=== PATIENT | female | born 1980 | race Caucasian/White ===

== ENCOUNTER 2016-08-22 11:20 | Inpatient (IN) ==
--- NOTE | 2016-08-22 11:35 | ED.PDOC ---
General ED Provider: Dr. PEARL ROE JR Chief Complaint: Nausea/Vomiting Stated Complaint: GENERAL WEAKNESS, VOMITING, NAUSEA. RIGHT LOWER TO MIDLINE ABD PAIN. [ End ]N V days 97.7 66 20 100% 149/93 10 Time Seen by Physician: 11:34 Mode of Arrival: Walk-In Information Source: Patient, Family Exam Limitations: No limitations [facility] and Triage Documentation Reviewed and Agree: No Review of Systems - Review Of Systems Constitutional: Reports: Malaise, Weakness Eyes: Reports: No symptoms Ears, Nose, Mouth, Throat: Reports: No symptoms Respiratory: Reports: No symptoms Cardiac: Reports: No symptoms GI: Reports: Abdominal pain (RLQ), Nausea (retching bile ), Vomiting : Reports: No symptoms Musculoskeletal: Reports: No symptoms Skin: Reports: No symptoms Neurological: Reports: No symptoms Endocrine: Reports: No symptoms Hematologic/Lymphatic: Reports: No symptoms All Other Systems: Other Past Medical History - Past Medical History Previously Healthy: Yes Endocrine: Reports: None Cardiovascular: Reports: None Respiratory: Reports: None Hematological: Reports: None Gastrointestinal: Reports: GERD Genitourinary: Reports: None Neuro/Psych: Reports: Anxiety, Depression, Other (OCD) Musculoskeletal: Reports: None Cancer: Reports: None Last Menstrual Period: 08/24 - Surgical History General Surgical History: Reports: Tubal ligation, Cholecystectomy - Family History Family History: Reports: Unknown - Social History Smoking Status: Former smoker Hx Substance Use: No Alcohol Screening: Occasionally - Immunizations Tetanus Shot up to Date: Yes Physical Exam - Physical Exam Appearance: Ill-appearing, Obese Ill-appearing: Moderate Pain Distress: Moderate Eyes: ELÍAS, EOMI, Conjunctiva clear ENT: Ears normal, Nose normal, Oropharynx normal Neck: Supple Respiratory: Airway patent, Breath sounds clear, Breath sounds equal, Respirations nonlabored Cardiovascular: RRR, Pulses normal, No rub, No murmur GI/: Soft, No masses, No Organomegaly, Tender, Bowel sounds hypoactive Musculoskeletal: Normal strength, ROM intact, No edema, No calf tenderness Skin: Warm, Dry, Normal color Neurological: Sensation intact, Motor intact, Reflexes intact, Cranial nerves intact, Alert, Oriented Psychiatric: Affect appropriate, Mood appropriate, Anxious Critical Care Note - Critical Care Note Total Time (mins): 0 Course - Course Hematology/Chemistry: 08/22/16 11:35 08/22/16 11:35 Orders, Labs, Meds: Lab Review 08/22/16 08/22/16 08/22/16 11:00 11:35 13:20 WBC 12.84 H RBC 4.61 Hgb 13.2 Hct 37.7 MCV 81.8 MCH 28.6 MCHC 35.0 RDW Coeff of Yesi 12.7 Plt Count 295 Immature Gran % (Auto) 0.5 Neut % (Auto) 84.6 Lymph % (Auto) 9.6 L [place] % (Auto) 4.9 Eos % (Auto) 0.0 Baso % (Auto) 0.4 Immature Gran # (Auto) 0.1 Neut # 10.9 H Lymph # 1.2 [place] # 0.6 Eos # 0.0 Baso # 0.1 Sodium 138 Potassium 3.7 Chloride 108 H Carbon Dioxide 18 L Anion Gap 15.7 BUN 11 Creatinine 0.98 Estimated GFR (MDRD) 65.00 BUN/Creatinine Ratio 11.22 Glucose 119 H Calcium 9.6 Total Bilirubin 0.45 AST 16 ALT 16 Alkaline Phosphatase 37 L Total Protein 7.7 Albumin 4.3 Globulin 3.4 Albumin/Globulin Ratio 1.26 Amylase 130 H Lipase 6 L Serum , Qual Negative Urine Color Yellow Urine Clarity Clear Urine pH 8.5 Ur Specific [place] 1.020 Urine Protein Trace Urine Glucose (UA) Negative Urine Ketones 4+ Urine Blood Trace-intact Urine Nitrite Negative Urine Bilirubin 1+ Urine Urobilinogen 1.0 Ur Leukocyte Esterase Negative Urine Microscopic RBC 2-5 Ur Squamous Epith Cells 5-10 Urine Bacteria 1+ H. pylori IgG Antibody Negative Orders Category Date Time Status ADMIT PATIENT INPATIENT .TO [facility] (NON-MONITORED ADMISSION 08/22/16 14: 44 Active BED) ACTIVITY .Early Mobilization for VTE Prevention CARE 08/22/16 14:44 Active INTAKE & OUTPUT Q8HR CARE 08/22/16 14:44 Active VITAL SIGNS Q4HR CARE 08/22/16 14:44 Active NOTHING BY MOUTH DIETARY 08/22/16 Dinner Ordered ED IV/MEDIPORT/POWERPORT .ONCE EMERGENCY 08/22/16 11:34 Active AMYLASE Stat LAB 08/22/16 11:35 Completed CBC W/ AUTO DIFF DAILY@0600 LAB 08/23/16 06:00 Ordered CBC W/ AUTO DIFF DAILY@0600 LAB 08/24/16 06:00 Ordered CBC W/ AUTO DIFF DAILY@0600 LAB 08/25/16 06:00 Ordered CBC W/ AUTO DIFF DAILY@0600 LAB 08/26/16 06:00 Ordered CBC W/ AUTO DIFF DAILY@0600 LAB 08/27/16 06:00 Ordered CBC W/ AUTO DIFF DAILY@0600 LAB 08/28/16 06:00 Ordered CBC W/ AUTO DIFF DAILY@0600 LAB 08/29/16 06:00 Ordered CBC W/ AUTO DIFF DAILY@0600 LAB 08/30/16 06:00 Ordered CBC W/ AUTO DIFF DAILY@0600 LAB 08/31/16 06:00 Ordered CBC W/ AUTO DIFF DAILY@0600 LAB 09/01/16 06:00 Ordered CBC W/ AUTO DIFF DAILY@0600 LAB 09/02/16 06:00 Ordered CBC W/ AUTO DIFF DAILY@0600 LAB 09/03/16 06:00 Ordered CBC W/ AUTO DIFF DAILY@0600 LAB 09/04/16 06:00 Ordered CBC W/ AUTO DIFF DAILY@0600 LAB 09/05/16 06:00 Ordered CBC W/ AUTO DIFF DAILY@0600 LAB 09/06/16 06:00 Ordered CBC W/ AUTO DIFF DAILY@0600 LAB 09/07/16 06:00 Ordered CBC W/ AUTO DIFF DAILY@0600 LAB 09/08/16 06:00 Ordered CBC W/ AUTO DIFF DAILY@0600 LAB 09/09/16 06:00 Ordered CBC W/ AUTO DIFF DAILY@0600 LAB 09/10/16 06:00 Ordered CBC W/ AUTO DIFF DAILY@0600 LAB 09/11/16 06:00 Ordered CBC W/ AUTO DIFF Stat LAB 08/22/16 11:35 Completed COMPREHENSIVE METABOLIC PANEL DAILY@0600 LAB 08/23/16 06:00 Ordered COMPREHENSIVE METABOLIC PANEL DAILY@0600 LAB 08/24/16 06:00 Ordered COMPREHENSIVE METABOLIC PANEL DAILY@0600 LAB 08/25/16 06:00 Ordered COMPREHENSIVE METABOLIC PANEL DAILY@0600 LAB 08/26/16 06:00 Ordered COMPREHENSIVE METABOLIC PANEL DAILY@0600 LAB 08/27/16 06:00 Ordered COMPREHENSIVE METABOLIC PANEL DAILY@0600 LAB 08/28/16 06:00 Ordered COMPREHENSIVE METABOLIC PANEL DAILY@0600 LAB 08/29/16 06:00 Ordered COMPREHENSIVE METABOLIC PANEL DAILY@0600 LAB 08/30/16 06:00 Ordered COMPREHENSIVE METABOLIC PANEL DAILY@0600 LAB 08/31/16 06:00 Ordered COMPREHENSIVE METABOLIC PANEL DAILY@0600 LAB 09/01/16 06:00 Ordered COMPREHENSIVE METABOLIC PANEL DAILY@0600 LAB 09/02/16 06:00 Ordered COMPREHENSIVE METABOLIC PANEL DAILY@0600 LAB 09/03/16 06:00 Ordered COMPREHENSIVE METABOLIC PANEL DAILY@0600 LAB 09/04/16 06:00 Ordered COMPREHENSIVE METABOLIC PANEL DAILY@0600 LAB 09/05/16 06:00 Ordered COMPREHENSIVE METABOLIC PANEL DAILY@0600 LAB 09/06/16 06:00 Ordered COMPREHENSIVE METABOLIC PANEL DAILY@0600 LAB 09/07/16 06:00 Ordered COMPREHENSIVE METABOLIC PANEL DAILY@0600 LAB 09/08/16 06:00 Ordered COMPREHENSIVE METABOLIC PANEL DAILY@0600 LAB 09/09/16 06:00 Ordered COMPREHENSIVE METABOLIC PANEL DAILY@0600 LAB 09/10/16 06:00 Ordered COMPREHENSIVE METABOLIC PANEL DAILY@0600 LAB 09/11/16 06:00 Ordered COMPREHENSIVE METABOLIC PANEL Stat LAB 08/22/16 11:35 Completed H. PYLORI SCREEN Stat LAB 08/22/16 11:35 Completed LIPASE Stat LAB 08/22/16 11:35 Completed SERUM TEST [SERUM ] Stat LAB 08/22/16 11:00 Completed URINALYSIS C & S IF INDICATED Stat LAB 08/22/16 13:20 Completed URINE CULTURE Stat LAB 08/22/16 13:20 Received 0.9 % Sodium Chloride [Saline Flush] MEDS 08/22/16 11:34 Active 1 syr IVF PRN PRN Morphine Sulfate [Morphine 4 mg/ml Syringe] MEDS 08/22/16 11:47 Discontinued 4 mg IVP ONCE STA Morphine Sulfate [Morphine 4 mg/ml Syringe] MEDS 08/22/16 14:49 Discontinued 4 mg IVP ONCE STA Morphine Sulfate [Morphine 4 mg/ml Syringe] MEDS 08/22/16 14:50 Active 4 mg IVP Q6H PRN Ondansetron HCl/Pf [Zofran 4 mg/2 ml] MEDS 08/22/16 11:47 Discontinued 4 mg IVP ONCE STA Ondansetron HCl/Pf [Zofran 4 mg/2 ml] MEDS 08/22/16 12:38 Discontinued 4 mg IVP ONCE STA Ondansetron HCl/Pf [Zofran 4 mg/2 ml] MEDS 08/22/16 14:44 Active 4 mg IVP Q4H PRN Promethazine HCl [Phenergan 25 mg/ml Vial] MEDS 08/22/16 13:29 Discontinued 25 mg .ROUTE .STK-MED ONE Promethazine HCl [Phenergan 25 mg/ml Vial] 25 mg MEDS 08/22/16 13:01 Discontinued 0.9 % Sodium Chloride [Sodium Chloride] 50 ml IV ONCE Sodium Chloride 0.9% [Sodium Chloride] 1,000 ml MEDS 08/22/16 15:00 Active IV 75 mls/hr Sodium Chloride 0.9% [Sodium Chloride] 1,000 ml MEDS 08/22/16 11:48 Discontinued IV BOLUS Sodium Chloride 0.9% [Sodium Chloride] 1,000 ml MEDS 08/22/16 13:01 Discontinued IV BOLUS RESUSCITATION STATUS Routine OTHERS 08/22/16 14:[address] ABDOMEN/PELVIS WO CONTRAST Stat RADS 08/22/16 11:34 Completed Medications Generic Name Dose Route Start Last Admin Trade Name Freq PRN Reason Stop Dose Admin Clonazepam 1 mg 08/22/16 21:00 Klonopin PO TID TERRY Fluoxetine HCl 40 mg 08/23/16 09:00 Prozac PO DAILY TERRY Gabapentin 200 mg 08/22/16 21:00 Neurontin PO TID TERRY Sodium Chloride 1,000 mls @ 75 mls/hr 08/22/16 15:00 08/22/16 16:56 Sodium Chloride IV 75 mls/hr .[id number] TERRY Administration Methocarbamol 500 mg 08/22/16 21:00 Robaxin PO BEDTIME TERRY Morphine Sulfate 4 mg 08/22/16 14:50 Morphine 4 Mg/Ml Syringe IVP Q6H PRN Abdominal Pain Morphine Sulfate 4 mg 08/22/16 18:52 Morphine 4 Mg/Ml Syringe IVP 08/22/16 18:53 ONCE STA Ondansetron HCl 4 mg 08/22/16 14:44 08/22/16 14:55 Zofran 4 Mg/2 Ml IVP 4 mg Q4H PRN Administration Nausea / Vomiting Ondansetron HCl 4 mg 08/22/16 17:54 08/22/16 17:58 Zofran 4 Mg/2 Ml IVP 08/22/16 17:55 4 mg ONCE STA Administration Sodium Chloride 1 syr 08/22/16 11:34 08/22/16 14:59 Saline Flush IVF 1 syr PRN PRN Administration To flush IV Topiramate 50 mg 08/22/16 21:00 Topamax PO BID TERRY Discontinued Medications Generic Name Dose Route Start Last Admin Trade Name Freq PRN Reason Stop Dose Admin Sodium Chloride 1,000 mls @ 1,000 mls/hr 08/22/16 11:48 08/22/16 11:57 Sodium Chloride IV 08/22/16 12:47 1,000 mls/hr BOLUS STA Administration Promethazine HCl 25 mg/ Sodium 51 mls @ 75 mls/hr 08/22/16 13:01 08/22/16 13: 33 Chloride IV 08/22/16 13:41 75 mls/hr ONCE STA Administration Sodium Chloride 1,000 mls @ 1,000 mls/hr 08/22/16 13:01 08/22/16 13:32 Sodium Chloride IV 08/22/16 14:00 1,000 mls/hr BOLUS STA Administration Morphine Sulfate 4 mg 08/22/16 11:47 08/22/16 11:58 Morphine 4 Mg/Ml Syringe IVP 08/22/16 11:48 4 mg ONCE STA Administration Morphine Sulfate 4 mg 08/22/16 14:49 08/22/16 14:57 Morphine 4 Mg/Ml Syringe IVP 08/22/16 14:50 4 mg ONCE STA Administration Ondansetron HCl 4 mg 08/22/16 11:47 08/22/16 11:57 Zofran 4 Mg/2 Ml IVP 08/22/16 11:48 4 mg ONCE STA Administration Ondansetron HCl 4 mg 08/22/16 12:38 08/22/16 12:43 Zofran 4 Mg/2 Ml IVP 08/22/16 12:39 4 mg ONCE STA Administration Vital Signs: Temp Pulse Resp BP Pulse Ox 08/22/16 11:21 97.7 F 66 20 149/93 H 100 Departure - Departure Time of Disposition: 14:40 Disposition: ADMITTED INPATIENT Discharge Problem: Nausea, Vomiting Condition: Fair Pt referred to PMD for follow-up: No (hospitalist) Allergies/Adverse Reactions: Allergies No Known Allergies Allergy (Unverified 08/19/13 17:15) Home Medications: Ambulatory Orders Clonazepam [Klonopin] 1 mg PO TID 07/12/13 Fluoxetine HCl [Prozac] 40 mg PO DAILY 07/12/13 Hydrocodone Bit/Acetaminophen [[place] 7.5-325] 1 tab PO TID PRN 07/12/13 Methocarbamol 500 mg PO BEDTIME 07/12/13 Topiramate [Topamax] 50 mg PO BID 08/19/13 Gabapentin [Neurontin] 200 mg PO TID 08/22/16
[2016-08-22 11:43] LABS: BASOPHILS # (AUTO) 0.1 K/uL (0-0.2); BASOPHILS % (AUTO) 0.4 % (0.0-3.0); HEMATOCRIT 37.7 % (37.0-47.0); HEMOGLOBIN 13.2 g/dl (12.0-16.0); IMMATURE GRANULOCYTE % (AUTO) 0.5 % (0.0-5.0); LYMPHOCYTES # (AUTO) 1.2 K/uL (0.60-3.4); LYMPHOCYTES % (AUTO) 9.6 (10.0-50.0); MEAN CORPUSCULAR HEMOGLOBIN 28.6 pg (27.0-31.0); MEAN CORPUSCULAR VOLUME 81.8 fl (81.0-99.0); MONOCYTES # (AUTO) 0.6 K/uL (0.4-2.0); MONOCYTES % (AUTO) 4.9 (0-10); NEUTROPHILS # (AUTO) 10.9 K/ul (2.0-6.9); NEUTROPHILS % (AUTO) 84.6; PLATELET COUNT 295 10^3/uL (140-440); RED BLOOD COUNT 4.61 10^6/ul (4.20-5.40); WHITE BLOOD COUNT 12.84 K/ul (4.6-10.2)
[2016-08-22] MEDS ORDERED: ZOFRAN 4 MG/2 ML IVP STA ×3 (11:47→17:54)
[2016-08-22] MEDS ORDERED: MORPHINE 4 MG/ML SYRINGE IVP STA ×3 (11:47→18:52)
[2016-08-22] MEDS ORDERED: SODIUM CHLORIDE 1,000 ML IV STA ×2 (11:48→13:01)
[2016-08-22 12:04] LABS: H. PYLORI ANTIBODY NEGATIVE (NEGATIVE); H.PYLORI INTERNAL QC INTERNAL QC VALID
[2016-08-22 12:08] LABS: ALBUMIN 4.3 g/dL (3.4-5.0); ALBUMIN/GLOBULIN RATIO 1.26; ANION GAP 15.7; BILIRUBIN,TOTAL 0.45 mg/dL (0.00-1.20); BUN/CREATININE RATIO 11.22; CALCIUM 9.6 mg/dL (8.2-10.2); CREATININE 0.98 mg/dL (0.60-1.30); POTASSIUM 3.7 mmol/L (3.5-5.10); TOTAL PROTEIN 7.7 g/dL (6.4-8.2)
[2016-08-22 12:14] LABS: SERUM PREGNANCY INTERNAL QC INTERNAL QC VALID
--- NOTE | 2016-08-22 12:51 | CT ---
EXAM: CT Abdomen without contrast. CT Pelvis without contrast. HISTORY: Right-sided abdominal pain. Nausea, vomiting, diarrhea for 2 days. COMPARISON: 05/12/2010. TECHNIQUE: Multiple axial images of the abdomen and pelvis were obtained without intravenous contra st. Images were reformatted in the coronal plane. FINDINGS: Please note that evaluation of the abdominal and pelvic structures is limited due to lack of intravenous contrast. No acute abnormality identified in the lung bases. Right lower lobe nodule is suggested on axial im age 1, likely post infectious or inflammatory. Degenerative changes are present in the spine. The gallbladder is absent. The liver, pancreas, spleen, adrenal glands, and kidneys demonstrate nor mal contour. No calcified renal stones or hydronephrosis detected. The bowel is normal in course and caliber without evidence for obstruction or inflammatory process. The appendix is normal. Uterus demonstrates normal contour. Small amount of free pelvic fluid is within physiologic range. Urinary bladder is unremarkable. No free air identified. Small fat-cont aining umbilical hernia noted. IMPRESSION: No acute abnormality within the abdomen or pelvis.
[2016-08-22] MEDS ORDERED: PHENERGAN 25 MG/ML VIAL 25 MG in SODIUM CHLORIDE 50 ML IV STA (13:01)
[2016-08-22 13:29] LABS: BILIRUBIN,URINE 1+ (NEGATIVE); KETONES,URINE 4+ (NEGATIVE); LEUKOCYTE ESTERASE ,URINE Negative (NEGATIVE); NITRITE,URINE Negative (NEGATIVE); PH,URINE 8.5 (5-9); PROTEIN,URINE Trace (NEGATIVE); URINE, BLOOD Trace-intact (NEGATIVE)
[2016-08-22] MEDS ORDERED: PHENERGAN 25 MG/ML VIAL ONE (13:29)
[2016-08-22 13:38] LABS: ADD URINE MICROSCOPIC YES
[2016-08-22 13:39] LABS: BACTERIA,URINE 1+ (NOT PRESENT)
[2016-08-22] MEDS ORDERED: ZOFRAN 4 MG/2 ML IVP PRN (14:44)
[2016-08-22] MEDS ORDERED: MORPHINE 4 MG/ML SYRINGE IVP PRN (14:50)
[2016-08-22] MEDS ORDERED: REGLAN IVP PRN (14:55)
[2016-08-22] MEDS ORDERED: SODIUM CHLORIDE 1,000 ML IV SCH (15:00)
[2016-08-22 16:27] VITALS: BMI 36.8
[2016-08-22 19:43] LABS: COCAIN SCREEN,URINE NEGATIVE (NEGATIVE)
[2016-08-22] MEDS ORDERED: NEURONTIN ONE (20:18)
[2016-08-22] MEDS ORDERED: NEURONTIN PO SCH ×2 (21:00)
[2016-08-22] MEDS ORDERED: ROBAXIN PO SCH (21:00)
[2016-08-22] MEDS ORDERED: KLONOPIN PO SCH (21:00)
[2016-08-22] MEDS ORDERED: METHOCARBAMOL 500 MG PO SCH ×21 (21:00)
[2016-08-22] MEDS ORDERED: TOPAMAX PO SCH (21:00)
[2016-08-22] MEDS ORDERED: NON-FORMULARY MEDICATION (Clonazepam [Klonopin] 1 MG) PO SCH ×22 (21:00)
[2016-08-22 21:04] VITALS: BP 126/75; TEMP 99.7
[2016-08-23] MEDS ORDERED: PROZAC PO SCH (09:00)
[2016-08-23] MEDS ORDERED: NON-FORMULARY MEDICATION (Fluoxetine Hcl [Prozac] 40 MG) PO SCH (09:00)
--- NOTE | 2016-08-23 13:20 | DS ---
DATE OF SERVICE: 08/22/16 HOSPITAL COURSE: I had contacted [facility] and the nurses had sent the demographics as well as pertinent data. They had not call us back and we did call them again and the transfer center mentioned that they had paged the hospitalist twice and had not answered. Transfer Center told the nurse the [place] that send a fax to him. We had not heard anything from them so I called the Transfer Center and I did talk to them and discussed the case. They told me that they had to talk to the surgeon about what I had told them and they will call me back. The Transfer Center did call me back and told me that Dr. Mustafa was online. I did inform Dr. Mustafa about the history of this patient as well as the pertinent physical and pertinent data. This patient has low grade fever of 100 this evening. Continued nausea and vomiting. WBC was 12,000+ and the abdomen has tenderness in the right lower quadrant with rebound. The tenderness is not significant when the muscle is contracted. Bowel sounds were active, the pelvic examination was negative and rectal was also negative. Dr. Mustafa accepted the patient into his services and this patient will be transferred to [facility] to the emergency room. The patient was advised about the transfer to [facility] as soon as possible. I had told them at my first examined that I would seek transfer for her to another facility where there is a surgeon. I also had informed the mother with regards to the transfer. I told her that if I could transfer her to [place] I would first try [facility] and then [facility] and if both of them would not accept the patient that I try another facility. The patient as well as the mother preferred to the go to [facility]. This patient will sent to [facility] and I did write a history as well as a physical examination of this patient to go with the patient to go to [facility]. I had dictated the history of physicals but no one able to transcribe at this time. FINAL DIAGNOSES: 1. Abdominal pain, right lower quadrant, probably acute appendicitis. MTDD
--- NOTE | 2016-08-23 14:18 | HP ---
DATE OF SERVICE: 08/22/16 CHIEF COMPLAINT: Abdominal pain and vomiting SOURCE OF HISTORY: The patient HISTORY OF PRESENT ILLNESS: The patient did go to [place] and eat hamburger and [employer] . The patient claimed to have full regurgitation Monday and she always had reflux problems. She had nausea and took Zofran Monday as well as Monday. She ran out of Zofran by Monday evening. She was able to keep food down with Zofran buy by Monday the patient claimed to have problems with nausea and vomiting. She presented to the emergency room and was seen by the emergency room physician at 11:34am. The patient's work up at the emergency room consisted of CBC showing WBC of 12,840 normal electrolytes, renal panel normal, liver normal, Amylase slightly elevated probably not significant 130 upper normal 115 and Lipase very low at 6. Serum test negative. This patient had previous tubal ligation. CAT scan of the abdomen showed no remarkable abnormalities including a normal looking appendix. CAT of the abdomen was done 11:34am. PAST PERSONAL HISTORY: The patient has Cholecystectomy laparoscopic done at [place], the procedure took longer than what was excepted 4.5 hour instead of 45 minutes. It must have been a common duct stone causing the prolongation of the surgery. She also had previous tubal ligation. The patient was admitted at [facility] when she was a child. GERD Depression Anxiety OCD FAMILY HISTORY: Mother had autoimmune disorder as cell as sickle cell trait SOCIAL HISTORY: The patient is and stopped smoking some years ago. Occasional alcohol drink. MEDICATIONS: Hydrocodone/Tylenol 7.5-325 one tablet three times a day as needed Prozac 40mg PO daily Klonopin 1mg three times a day Methocarbamol 500mg tablet at bedtime Topamax 50mg twice a day Gabapentin 200mg three times a day ALLERGIES: No known drug allergies. REVIEW OF SYSTEMS: CONSTITUTIONAL: The patient is alert with no chills, questionable fever with weakness because of the vomiting and abdominal pain YOUTH SERVICES SPECIALIST: No headaches, no dizziness, ataxia and history of seizures disorder or syncope VISUAL: Denies any blurred vision, double vision or transient loss of vision AUDITORY: Hearing is adequate, denies any tinnitus, pain or drainage. RESPIRATORY: The patient has no cough and no history of hemoptysis CARDIOVASCULAR:Denies any chest tightness of chest oppression. GASTROINTESTINAL: The patient has regurgitation since Monday but had nausea and vomiting more pronounced today with abdominal pain. GENITOURINARY: Denies or pain, frequency or urgency or urination. MUSCULOSKELETAL: No significant joint pains or muscular pains ENDOCRINE: Negative; BMI is elevated at 36.9. INTEGUMENT: No rash or pleuritis HEMATOLOGIC: No history of prolonged bleeding or easy bruising. PSYCHIATRIC: Affect is normal in spite of the pain. PHYSICAL EXAMINATION: GENERAL: The patient is a 35 year old female , admitted to the hospital because of persistent vomiting with abdominal pain. The pain is located slightly below the level of the umbilicus in the right lower quadrant. The patient is not spasmatic. VITAL SIGNS: On the floor; Temperature 98.5, pulse 58, blood pressure 154/73, respiratory rate 16 and oxygen saturation 100 at room air. She is 5'11, 264 pounds and 4 ounces. HEAD: Unremarkable FACE: Symmetrical and equal with no facial weakness and no remarkable tenderness in the frontal maxillary sinus areas to palpation under pressure. EYES: Pupils equal/reactive to light. About 3mm in size. Conjunctivae not pale. Sclerae not icteric. MOUTH: Edentulous THROAT: No inflammation, tumors or exudate. NECK: No masses. No bruit. No tenderness. No rigidity. CHEST: Symmetrical and equal with good expansion. LUNGS: Clear to auscultation in both sides. HEART: Audible and regular with good tones. No murmurs. ABDOMEN: Scar from the previous laparoscopic cholecystectomy. Tenderness more on the right lower quadrant with rebound. Some tenderness in the upper quadrant but most likely from the vomiting. The tenderness is less with the muscle contraction. PELVIC EXAMINATION: Movement of the cervix does not increase the pain in the right lower quadrant. There is no adnexal masses. It is difficult to palpate because of the size. RECTAL: Anal sphincter slightly weak. Anal canal is free of tumor masses and there are no spiral rectal palpable bulging. LOWER EXTREMITIES: Essentially symmetrical and equal with no significant edema. The posterior tibials are difficult to find. UPPER EXTREMITIES: Symmetrical and equal LABS: CBC showing WBC of 12,840. CT scan of the abdomen with no acute processes including the appendix had the scan done at 11:34am. Serum amylase slightly elevated 130 probably not significant and lipase is normal. Urinalysis 4+ ketones from the vomiting. Chemistries are unremarkable and normal. ASSESSMENT: 1. Right lower quadrant pain, probably appendicitis 2. Markedly elevated BMI 3. History of gastroesophageal reflux disease 4. History of cholecystectomy done at [place], [place]. 5. History of Tubal ligation PLAN: 1. The patient during the examination was advised including her mother that I would seek transfer to another facility since there is no surgeon in his hospital for consultation. I would try [place] and if I could not get [place] then I would try other places to transfer her. We have called Transfer Center at [facility] and I am waiting for their call. The patient now has a low grade temperature; 100, pulse of 92, blood pressure 148/74 and respiratory between 16 to 20 and oxygen saturation is still at 100. Note will be dictated as to where she will going from this facility to the receiving facility. YOCASTA
== END 2016-08-22 21:15 | disposition short-term general hospital (02) | DRG 392 ==
LOC: ED 11:20 → MEDSURG B 15:02
PROVIDERS: ADMIT General Practice; ATTEND General Practice
DX: R10.31 Right lower quadrant pain (principal); K35.80 Unspecified acute appendicitis; R10.813 Right lower quadrant abdominal tenderness; R11.2 Nausea with vomiting, unspecified; R53.1 Weakness; R50.9 Fever, unspecified; Z90.49 Acquired absence of other specified parts of digestive tract; Z87.891 Personal history of nicotine dependence; Z79.899 Other long term (current) drug therapy
CPT/HCPCS: 36415; 80053; 80306; 81001; 82150; 83690; 84703; 85025; 86677; 87086; 96361; 96365; 96375; 96376; 99224; 99284

== ENCOUNTER 2016-08-22 21:21 | Outpatient (CLI) ==
[2016-08-22 16:27] VITALS: BMI 36.8
== END 2016-08-22 21:22 ==
LOC: AMBL 21:21
PROVIDERS: ATTEND Family Medicine
DX: R10.9 Unspecified abdominal pain (principal)

== ENCOUNTER 2016-10-04 09:56 | Outpatient (CLI) ==
--- NOTE | 2016-10-04 10:25 | DI ---
EXAM: Views of the lumbar spine HISTORY: Stenosis, disc degeneration. TECHNIQUE: AP lateral, oblique and coned-down lateral views of the lumbar spine were obtained. FINDINGS: The alignment is normal. There is no evidence of compression fracture. There is no pars defect. There is mild degenerative disc disease and loss of disc height seen at L5-S1. There has b een previous cholecystectomy. IMPRESSION: Mild degenerative disc disease seen at L5-S1. There is no spondylolisthesis. No evidence of acute compression fracture.
== END 2016-10-04 09:57 | disposition home or self-care (01) ==
LOC: RAD 09:56
PROVIDERS: ATTEND Pain Medicine Interventional Pain Medicine
DX: M51.16 Intervertebral disc disorders with radiculopathy, lumbar region (principal); M51.17 Intervertebral disc disorders with radiculopathy, lumbosacral region; M48.06 Spinal stenosis, lumbar region; M48.07 Spinal stenosis, lumbosacral region; M51.36 Other intervertebral disc degeneration, lumbar region; M51.37 Other intervertebral disc degeneration, lumbosacral region; M47.816 Spondylosis without myelopathy or radiculopathy, lumbar region; M47.817 Spondylosis without myelopathy or radiculopathy, lumbosacral region

== ENCOUNTER 2016-11-30 05:19 | Inpatient (IN) ==
[2016-11-30] MEDS ORDERED: PHENERGAN 25 MG/ML VIAL 25 MG in SODIUM CHLORIDE 50 ML IV STA (05:30)
[2016-11-30] MEDS ORDERED: MORPHINE 2 MG/ML SYRINGE IVP STA (05:30)
[2016-11-30] MEDS ORDERED: SODIUM CHLORIDE 1,000 ML IV STA ×2 (05:30)
[2016-11-30] MEDS ORDERED: PHENERGAN 25 MG/ML VIAL ONE (05:34)
[2016-11-30 05:39] LABS: BASOPHILS # (AUTO) 0.1 K/uL (0-0.2); BASOPHILS % (AUTO) 0.9 % (0.0-3.0); EOSINOPHILS # (AUTO) 0.4 K/ul (0.0-0.7); EOSINOPHILS % (AUTO) 3.7 % (0.0-7.0); HEMATOCRIT 38.7 % (37.0-47.0); HEMOGLOBIN 13.6 g/dl (12.0-16.0); IMMATURE GRANULOCYTE % (AUTO) 0.3 % (0.0-5.0); LYMPHOCYTES # (AUTO) 2.6 K/uL (0.60-3.4); LYMPHOCYTES % (AUTO) 25.7 (10.0-50.0); MEAN CORPUSCULAR HEMOGLOBIN 29.1 pg (27.0-31.0); MEAN CORPUSCULAR HGB CONC 35.1 (31.8-35.4); MEAN CORPUSCULAR VOLUME 82.9 fl (81.0-99.0); MONOCYTES # (AUTO) 0.6 K/uL (0.4-2.0); MONOCYTES % (AUTO) 5.9 (0-10); NEUTROPHILS # (AUTO) 6.4 K/ul (2.0-6.9); NEUTROPHILS % (AUTO) 63.5; PLATELET COUNT 308 10^3/uL (140-440); RED BLOOD COUNT 4.67 10^6/ul (4.20-5.40); WHITE BLOOD COUNT 10.11 K/ul (4.6-10.2)
[2016-11-30 06:01] LABS: ALBUMIN 4.1 g/dL (3.4-5.0); ALBUMIN/GLOBULIN RATIO 1.32; ANION GAP 17.7; BILIRUBIN,TOTAL 0.46 mg/dL (0.00-1.20); BUN/CREATININE RATIO 17.2; CALCIUM 9.7 mg/dL (8.2-10.2); CREATININE 0.93 mg/dL (0.60-1.30); POTASSIUM 3.7 mmol/L (3.5-5.10); TOTAL PROTEIN 7.2 g/dL (6.4-8.2)
--- NOTE | 2016-11-30 06:27 | ED.PDOC ---
General ED Provider: Dr. CHARLENE HYMAN-ER Chief Complaint: Nausea/Vomiting Stated Complaint: lito been throwing up and having diarrhea for the past 3 hrs Time Seen by Physician: 05:20 Mode of Arrival: Walk-In Information Source: Patient Exam Limitations: No limitations [facility] and Triage Documentation Reviewed and Agree: Yes GI Complaint Exam - Vomiting/Diarrhea Complaint/Exam Onset/Duration: 3 hrs ago Symptoms Are: Still present Episodes of Vomiting over last 24 Hours: 10 Episodes of Diarrhea Over Last 24 Hours: 3 Initial Severity: Mild Current Severity: Moderate Character of Vomiting: Reports: Non-bilious Character of Diarrhea: Reports: Watery Aggravating: Reports: None Alleviating: Reports: None Associated Signs and Symptoms: Reports: Abdominal pain, Cramping. Denies: Dizziness, Light-headedness, Melena, Hematemesis, Fever Kussmaul Respirations Present: No Differential Diagnoses: Bowel Obstruction, Dehydration, Viral Gastroenteritis, Pancreatitis, UTI Review of Systems - Review Of Systems Constitutional: Reports: No symptoms Eyes: Reports: No symptoms Ears, Nose, Mouth, Throat: Reports: No symptoms Respiratory: Reports: No symptoms Cardiac: Reports: No symptoms GI: Reports: Diarrhea, Nausea, Vomiting : Reports: No symptoms Musculoskeletal: Reports: No symptoms Skin: Reports: No symptoms Neurological: Reports: No symptoms Endocrine: Reports: No symptoms Hematologic/Lymphatic: Reports: No symptoms All Other Systems: Reviewed and Negative Past Medical History - Past Medical History Previously Healthy: Yes Endocrine: Reports: None Cardiovascular: Reports: None Respiratory: Reports: None Hematological: Reports: None Gastrointestinal: Reports: GERD Genitourinary: Reports: None Neuro/Psych: Reports: Anxiety, Depression, Other (OCD) Musculoskeletal: Reports: None Cancer: Reports: None Last Menstrual Period: PRESENTLY - Surgical History General Surgical History: Reports: Tubal ligation, Cholecystectomy - Family History Family History: Reports: Unknown - Social History Smoking Status: Former smoker Hx Substance Use: No Alcohol Screening: None Lives: With family - Immunizations Tetanus Shot up to Date: Yes Physical Exam - Physical Exam Appearance: Well-appearing, No pain distress, Well-nourished Pain Distress: Mild Eyes: ELÍAS, EOMI, Conjunctiva clear ENT: Ears normal, Nose normal, Oropharynx normal Neck: Supple Respiratory: Airway patent Cardiovascular: RRR, Pulses normal, No rub, No murmur GI/: Soft, Nontender, No masses, Bowel sounds normal, No Organomegaly Musculoskeletal: Normal strength Skin: Warm, Dry, Normal color Neurological: Sensation intact, Motor intact, Reflexes intact, Cranial nerves intact, Alert, Oriented Psychiatric: Affect appropriate, Mood appropriate, Anxious Interpretation - Radiology Interpretation Radiology Interpretation By: Radiologist Radiology Results: Negative Exam Interpreted: CT Scan Physician Notification - Case Discussed Physician Notified: dr brasher Time of Notification: 07:00 Critical Care Note - Critical Care Note Total Time (mins): 0 Course - Course Hematology/Chemistry: 11/30/16 05:30 11/30/16 05:30 Orders, Labs, Meds: Lab Review 11/30/16 11/30/16 05:30 07:05 WBC 10.11 RBC 4.67 Hgb 13.6 Hct 38.7 MCV 82.9 MCH 29.1 MCHC 35.1 RDW Coeff of Yesi 12.9 Plt Count 308 Immature Gran % (Auto) 0.3 Neut % (Auto) 63.5 Lymph % (Auto) 25.7 [place] % (Auto) 5.9 Eos % (Auto) 3.7 Baso % (Auto) 0.9 Immature Gran # (Auto) 0.0 Neut # 6.4 Lymph # 2.6 [place] # 0.6 Eos # 0.4 Baso # 0.1 Sodium 140 Potassium 3.7 Chloride 105 Carbon Dioxide 21 Anion Gap 17.7 BUN 16 Creatinine 0.93 Estimated GFR (MDRD) 69.00 BUN/Creatinine Ratio 17.20 Glucose 143 H Calcium 9.7 Total Bilirubin 0.46 AST 15 ALT 11 L Alkaline Phosphatase 40 L Total Protein 7.2 Albumin 4.1 Globulin 3.1 Albumin/Globulin Ratio 1.32 Amylase 192 H Lipase 22 Urine Color Yellow Urine Clarity Clear Urine pH >=9.0 Ur Specific Neligh 1.015 Urine Protein 1+ Urine Glucose (UA) Negative Urine Ketones 1+ Urine Blood 2+ Urine Nitrite Negative Urine Bilirubin Negative Urine Urobilinogen 0.2 Ur Leukocyte Esterase Negative Urine Microscopic RBC 5-10 Urine Microscopic WBC 5-10 Ur Squamous Epith Cells 5-10 Amorphous Sediment Trace Urine Bacteria 1+ Urine Mucus 1+ Orders Category Date Time Status ADMIT PATIENT INPATIENT .TO [facility] (NON-MONITORED ADMISSION 11/30/16 08: 07 Active BED) ACTIVITY .BR with [facility] CARE 11/30/16 08:07 Active BLOOD GLUCOSE MONITORING ACCUCHECK Q6H CARE 11/30/16 08:07 Active VITAL SIGNS Q8HR CARE 11/30/16 08:07 Active ED IV/MEDIPORT/POWERPORT .ONCE EMERGENCY 11/30/16 05:30 Active AMYLASE Stat LAB 11/30/16 05:30 Completed CBC W/ AUTO DIFF DAILY@0600 LAB 12/01/16 06:00 Ordered CBC W/ AUTO DIFF DAILY@0600 LAB 12/02/16 06:00 Ordered CBC W/ AUTO DIFF DAILY@0600 LAB 12/03/16 06:00 Ordered CBC W/ AUTO DIFF DAILY@0600 LAB 12/04/16 06:00 Ordered CBC W/ AUTO DIFF DAILY@0600 LAB 12/05/16 06:00 Ordered CBC W/ AUTO DIFF DAILY@0600 LAB 12/06/16 06:00 Ordered CBC W/ AUTO DIFF DAILY@0600 LAB 12/07/16 06:00 Ordered CBC W/ AUTO DIFF DAILY@0600 LAB 12/08/16 06:00 Ordered CBC W/ AUTO DIFF DAILY@0600 LAB 12/09/16 06:00 Ordered CBC W/ AUTO DIFF DAILY@0600 LAB 12/10/16 06:00 Ordered CBC W/ AUTO DIFF DAILY@0600 LAB 12/11/16 06:00 Ordered CBC W/ AUTO DIFF DAILY@0600 LAB 12/12/16 06:00 Ordered CBC W/ AUTO DIFF DAILY@0600 LAB 12/13/16 06:00 Ordered CBC W/ AUTO DIFF DAILY@0600 LAB 12/14/16 06:00 Ordered CBC W/ AUTO DIFF DAILY@0600 LAB 12/15/16 06:00 Ordered CBC W/ AUTO DIFF DAILY@0600 LAB 12/16/16 06:00 Ordered CBC W/ AUTO DIFF DAILY@0600 LAB 12/17/16 06:00 Ordered CBC W/ AUTO DIFF DAILY@0600 LAB 12/18/16 06:00 Ordered CBC W/ AUTO DIFF DAILY@0600 LAB 12/19/16 06:00 Ordered CBC W/ AUTO DIFF DAILY@0600 LAB 12/20/16 06:00 Ordered CBC W/ AUTO DIFF Stat LAB 11/30/16 05:30 Completed COMPREHENSIVE METABOLIC PANEL DAILY@0600 LAB 12/01/16 06:00 Ordered COMPREHENSIVE METABOLIC PANEL DAILY@0600 LAB 12/02/16 06:00 Ordered COMPREHENSIVE METABOLIC PANEL DAILY@0600 LAB 12/03/16 06:00 Ordered COMPREHENSIVE METABOLIC PANEL DAILY@0600 LAB 12/04/16 06:00 Ordered COMPREHENSIVE METABOLIC PANEL DAILY@0600 LAB 12/05/16 06:00 Ordered COMPREHENSIVE METABOLIC PANEL DAILY@0600 LAB 12/06/16 06:00 Ordered COMPREHENSIVE METABOLIC PANEL DAILY@0600 LAB 12/07/16 06:00 Ordered COMPREHENSIVE METABOLIC PANEL DAILY@0600 LAB 12/08/16 06:00 Ordered COMPREHENSIVE METABOLIC PANEL DAILY@0600 LAB 12/09/16 06:00 Ordered COMPREHENSIVE METABOLIC PANEL DAILY@0600 LAB 12/10/16 06:00 Ordered COMPREHENSIVE METABOLIC PANEL DAILY@0600 LAB 12/11/16 06:00 Ordered COMPREHENSIVE METABOLIC PANEL DAILY@0600 LAB 12/12/16 06:00 Ordered COMPREHENSIVE METABOLIC PANEL DAILY@0600 LAB 12/13/16 06:00 Ordered COMPREHENSIVE METABOLIC PANEL DAILY@0600 LAB 12/14/16 06:00 Ordered COMPREHENSIVE METABOLIC PANEL DAILY@0600 LAB 12/15/16 06:00 Ordered COMPREHENSIVE METABOLIC PANEL DAILY@0600 LAB 12/16/16 06:00 Ordered COMPREHENSIVE METABOLIC PANEL DAILY@0600 LAB 12/17/16 06:00 Ordered COMPREHENSIVE METABOLIC PANEL DAILY@0600 LAB 12/18/16 06:00 Ordered COMPREHENSIVE METABOLIC PANEL DAILY@0600 LAB 12/19/16 06:00 Ordered COMPREHENSIVE METABOLIC PANEL DAILY@0600 LAB 12/20/16 06:00 Ordered COMPREHENSIVE METABOLIC PANEL Stat LAB 11/30/16 05:30 Completed LIPASE Stat LAB 11/30/16 05:30 Completed URINALYSIS C & S IF INDICATED Stat LAB 11/30/16 07:05 Completed URINE CULTURE Stat LAB 11/30/16 08:00 Received 0.9 % Sodium Chloride [Saline Flush] MEDS 11/30/16 05:30 Active 1 syr IVF PRN PRN Ceftriaxone Sodium [Rocephin] 1 gm MEDS 11/30/16 09:00 Active 0.9 % Sodium Chloride [Sodium Chloride] 50 ml IV DAILY Hydromorphone HCl [Dilaudid 1 mg/ml Syringe] MEDS 11/30/16 08:13 Discontinued 0.5 mg IVP ONCE STA Morphine Sulfate [Morphine 2 mg/ml Syringe] MEDS 11/30/16 05:30 Discontinued 2 mg IVP ONCE STA Ondansetron HCl/Pf [Zofran 4 mg/2 ml] MEDS 11/30/16 06:49 Discontinued 4 mg .ROUTE .STK-MED ONE Ondansetron HCl/Pf [Zofran 4 mg/2 ml] MEDS 11/30/16 06:47 Discontinued 4 mg IVP ONCE STA Ondansetron HCl/Pf [Zofran 4 mg/2 ml] MEDS 11/30/16 08:14 Discontinued 4 mg IVP ONCE STA Ondansetron HCl/Pf [Zofran 4 mg/2 ml] MEDS 11/30/16 08:30 Discontinued 4 mg IVP Q6H Pantoprazole Sodium [Protonix IV] MEDS 11/30/16 08:10 Discontinued 40 mg IVP ONCE STA Promethazine HCl [Phenergan 25 mg/ml Vial] MEDS 11/30/16 05:34 Discontinued 25 mg .ROUTE .STK-MED ONE Promethazine HCl [Phenergan 25 mg/ml Vial] 25 mg MEDS 11/30/16 05:30 Discontinued 0.9 % Sodium Chloride [Sodium Chloride] 50 ml IV ONCE Sodium Chloride 0.9% [Sodium Chloride] 1,000 ml MEDS 11/30/16 08:30 Active IV 250 mls/hr Sodium Chloride 0.9% [Sodium Chloride] 1,000 ml MEDS 11/30/16 05:30 Discontinued IV BOLUS Sodium Chloride 0.9% [Sodium Chloride] 1,000 ml MEDS 11/30/16 05:[address] ABDOMEN/PELVIS WO CONTRAST Stat RADS 11/30/16 05:30 Completed U/S PELVIS JHA VAGINAL/NON OB Stat RADS 11/30/16 08:13 Completed Medications Generic Name Dose Route Start Last Admin Trade Name Freq PRN Reason Stop Dose Admin Al Hydroxide/Mg Hydroxide 30 ml 11/30/16 11:11 11/30/16 14:59 Gi Cocktail PO 30 ml QID PRN Administration Nausea / Vomiting Ceftriaxone Sodium 1 gm/ 50 mls @ 75 mls/hr 11/30/16 09:00 11/30/16 10:38 Sodium Chloride IV 75 mls/hr DAILY TERRY Administration Sodium Chloride 1,000 mls @ 250 mls/hr 11/30/16 08:30 11/30/16 14:00 Sodium Chloride IV 250 mls/hr .Q4H TERRY Administration Lorazepam 1 mg 11/30/16 11:11 11/30/16 11:27 Ativan IVP 1 mg Q6H PRN Administration Anxiety Ondansetron HCl 4 mg 11/30/16 12:00 11/30/16 11:27 Zofran 4 Mg/2 Ml IVP 4 mg Q6HR TERRY Administration Pantoprazole Sodium 40 mg 11/30/16 21:00 Protonix Iv IVP Q12HR TERRY Sodium Chloride 1 syr 11/30/16 05:30 11/30/16 05:50 Saline Flush IVF 1 syr PRN PRN Administration To flush IV Discontinued Medications Generic Name Dose Route Start Last Admin Trade Name Freq PRN Reason Stop Dose Admin Al Hydroxide/Mg Hydroxide 30 ml 11/30/16 08:56 11/30/16 09:01 Gi Cocktail PO 11/30/16 08:57 30 ml ONCE STA Administration Hydromorphone HCl 0.5 mg 11/30/16 08:13 11/30/16 08:42 Dilaudid 1 Mg/Ml Syringe IVP 11/30/16 08:14 0.5 mg ONCE STA Administration Promethazine HCl 25 mg/ Sodium 51 mls @ 75 mls/hr 11/30/16 05:30 11/30/16 05: 52 Chloride IV 11/30/16 06:10 75 mls/hr ONCE STA Administration Sodium Chloride 1,000 mls @ 1,000 mls/hr 11/30/16 05:30 11/30/16 07:40 Sodium Chloride IV 11/30/16 06:29 1,000 mls/hr BOLUS STA Administration Sodium Chloride 1,000 mls @ 1,000 mls/hr 11/30/16 05:30 11/30/16 05:50 Sodium Chloride IV 11/30/16 06:29 1,000 mls/hr BOLUS STA Administration Morphine Sulfate 2 mg 11/30/16 05:30 11/30/16 05:53 Morphine 2 Mg/Ml Syringe IVP 11/30/16 05:31 2 mg ONCE STA Administration Ondansetron HCl 4 mg 11/30/16 06:47 11/30/16 06:54 Zofran 4 Mg/2 Ml IVP 11/30/16 06:48 4 mg ONCE STA Administration Ondansetron HCl 4 mg 11/30/16 08:30 11/30/16 13:30 Zofran 4 Mg/2 Ml IVP Not Given Q6H TERRY Ondansetron HCl 4 mg 11/30/16 08:14 11/30/16 08:36 Zofran 4 Mg/2 Ml IVP 11/30/16 08:15 4 mg ONCE STA Administration Pantoprazole Sodium 40 mg 11/30/16 08:10 11/30/16 09:07 Protonix Iv IVP 11/30/16 08:11 40 mg ONCE STA Administration Vital Signs: Temp Pulse Resp BP Pulse Ox 11/30/16 05:19 96.6 F L 74 24 134/92 H 99 Departure - Departure Time of Disposition: 17:08 Disposition: ADMITTED INPATIENT Discharge Problem: Vomiting Condition: Stable Pt referred to PMD for follow-up: Yes Allergies/Adverse Reactions: Allergies No Known Allergies Allergy (Verified 11/30/16 05:29) Home Medications: Ambulatory Orders Clonazepam [Klonopin] 1 mg PO TID 07/12/13 Fluoxetine HCl [Prozac] 40 mg PO DAILY 07/12/13 Hydrocodone Bit/Acetaminophen [[place] 7.5-325] 1 tab PO TID PRN 07/12/13 Methocarbamol 500 mg PO BEDTIME 07/12/13 Topiramate [Topamax] 50 mg PO BID 08/19/13 Gabapentin [Neurontin] 200 mg PO TID 08/22/16 Disposition Discussed With: Patient
--- NOTE | 2016-11-30 06:46 | CT ---
EXAM: CT scan abdomen pelvis without contrast HISTORY: Abdominal pain with nausea vomiting COMPARISON: CT scan abdomen pelvis 08/22/2016 FINDINGS: Contiguous axial images obtained through the abdomen pelvis without contrast utilizing 3- mm collimation. Sagittal and coronal reconstructions were imaged and reviewed.. The visualized cordelia g bases are clear. There has been prior cholecystectomy. The liver, pancreas, spleen and adrenal g lands have normal unenhanced CT appearance. The kidneys are morphologically normal.. The abdominal aorta is normal in course and caliber.. There is a tampon artifact. There is no free fluid or inf lammatory changes. There is partial visualization of the appendix which appears normal. Umbilical hernia containing only fat.. Urinary bladder is decompressed not evaluated. IMPRESSION: No acute intra-abdominal findings.
[2016-11-30] MEDS ORDERED: ZOFRAN 4 MG/2 ML IVP STA ×2 (06:47→08:14)
[2016-11-30] MEDS ORDERED: ZOFRAN 4 MG/2 ML ONE (06:49)
[2016-11-30 07:56] LABS: BILIRUBIN,URINE Negative (NEGATIVE); KETONES,URINE 1+ (NEGATIVE); LEUKOCYTE ESTERASE ,URINE Negative (NEGATIVE); NITRITE,URINE Negative (NEGATIVE); PH,URINE >=9.0 (5-9); PROTEIN,URINE 1+ (NEGATIVE); URINE, BLOOD 2+ (NEGATIVE)
[2016-11-30 07:59] LABS: ADD URINE MICROSCOPIC YES
[2016-11-30 08:01] LABS: BACTERIA,URINE 1+ (NOT PRESENT)
[2016-11-30] MEDS ORDERED: PROTONIX IV IVP STA (08:10)
[2016-11-30] MEDS ORDERED: DILAUDID 1 MG/ML SYRINGE IVP STA (08:13)
[2016-11-30] MEDS ORDERED: ZOFRAN 4 MG/2 ML IVP SCH (08:30)
[2016-11-30] MEDS ORDERED: GI COCKTAIL PO STA (08:56)
[2016-11-30] MEDS: SODIUM CHLORIDE 1,000 ML IV SCH ×4 (09:29→21:43)
--- NOTE | 2016-11-30 09:40 | US ---
EXAM: Pelvic ultrasound. History: Pelvic pain. Comparison: CT abdomen and pelvis 11/30/2016 Technique: Multiple sonographic images through the pelvis were obtained. Color duplex Doppler was used to interrogate vascular flow. Findings: Limited evaluation due to bowel gas shadowing within the pelvis. The uterus measures 9.6 cm x 3.8 cm x 5.2 cm. Small Nabothian cysts seen within the cervix. The endometrium measures 0.9 c m in thickness. No free fluid in the cul-de-sac. Neither ovary was seen due to obscuration by jakob l gas. No adnexal masses identified. Impression: No acute sonographic findings.
[2016-11-30 10:30] VITALS: BMI 33.0
[2016-11-30] MEDS: ROCEPHIN 1 GM in SODIUM CHLORIDE 50 ML IV SCH (10:38)
[2016-11-30] MEDS: ZOFRAN 4 MG/2 ML IVP SCH ×3 (11:27→23:34)
[2016-11-30] MEDS: ATIVAN IVP PRN ×3 (11:27→23:19)
[2016-11-30] MEDS: GI COCKTAIL PO PRN (14:59)
[2016-11-30] MEDS ORDERED: ROBAXIN PO ONE (19:45)
[2016-11-30] MEDS ORDERED: KLONOPIN ONE (19:45)
[2016-11-30] MEDS ORDERED: NEURONTIN ONE (19:59)
[2016-11-30] MEDS: NORCO 7.5-325 PO PRN (19:59)
[2016-11-30] MEDS: NEURONTIN PO SCH (19:59)
[2016-11-30] MEDS: PROTONIX IV IVP SCH (20:00)
[2016-11-30] MEDS: TOPAMAX PO SCH (20:00)
[2016-11-30] MEDS ORDERED: KLONOPIN PO SCH (20:00)
[2016-11-30] MEDS ORDERED: METHOCARBAMOL 500 MG PO SCH ×21 (21:00)
[2016-12-01] MEDS: SODIUM CHLORIDE 1,000 ML IV SCH ×4 (01:29→11:10)
[2016-12-01] MEDS: GI COCKTAIL PO PRN ×4 (01:29→20:11)
[2016-12-01] MEDS ORDERED: KLONOPIN PO SCH (05:00)
[2016-12-01] MEDS: ZOFRAN 4 MG/2 ML IVP SCH ×4 (05:04→23:05)
[2016-12-01] MEDS: NEURONTIN PO SCH ×3 (05:04→20:11)
[2016-12-01 05:49] LABS: BASOPHILS % (AUTO) 0.2 % (0.0-3.0); HEMATOCRIT 34.2 % (37.0-47.0); HEMOGLOBIN 11.6 g/dl (12.0-16.0); IMMATURE GRANULOCYTE % (AUTO) 0.5 % (0.0-5.0); LYMPHOCYTES # (AUTO) 1.2 K/uL (0.60-3.4); LYMPHOCYTES % (AUTO) 9.7 (10.0-50.0); MEAN CORPUSCULAR HEMOGLOBIN 28.4 pg (27.0-31.0); MEAN CORPUSCULAR HGB CONC 33.9 (31.8-35.4); MEAN CORPUSCULAR VOLUME 83.8 fl (81.0-99.0); MONOCYTES # (AUTO) 0.6 K/uL (0.4-2.0); MONOCYTES % (AUTO) 4.7 (0-10); NEUTROPHILS # (AUTO) 10.8 K/ul (2.0-6.9); NEUTROPHILS % (AUTO) 84.9; PLATELET COUNT 225 10^3/uL (140-440); RED BLOOD COUNT 4.08 10^6/ul (4.20-5.40); WHITE BLOOD COUNT 12.76 K/ul (4.6-10.2)
[2016-12-01 06:21] LABS: ALBUMIN 3.5 g/dL (3.4-5.0); ALBUMIN/GLOBULIN RATIO 1.46; ANION GAP 12.4; BILIRUBIN,TOTAL 0.39 mg/dL (0.00-1.20); BUN/CREATININE RATIO 7.59; CALCIUM 8.2 mg/dL (8.2-10.2); CREATININE 0.79 mg/dL (0.60-1.30); POTASSIUM 3.4 mmol/L (3.5-5.10); TOTAL PROTEIN 5.9 g/dL (6.4-8.2)
[2016-12-01] MEDS: NORCO 7.5-325 PO PRN ×3 (08:03→23:11)
[2016-12-01] MEDS: TOPAMAX PO SCH ×2 (08:03→20:11)
[2016-12-01] MEDS: ROCEPHIN 1 GM in SODIUM CHLORIDE 50 ML IV SCH (08:03)
[2016-12-01] MEDS: PROZAC PO SCH (08:38)
[2016-12-01] MEDS: PROTONIX IV IVP SCH (08:43)
[2016-12-01] MEDS: KLONOPIN PO SCH ×2 (13:19→20:11)
--- NOTE | 2016-12-01 14:39 | HP ---
DATE OF SERVICE: 11/30/16 CHIEF COMPLAINT: Nausea and vomiting. HISTORY OF PRESENT ILLNESS: This is a 36-year-old female who had come to the emergency room early in the morning with intractable nausea, vomiting, unable to keep anything down. Vomitus consisted of food and water, whatever she was eating; nonbloody, no bile. As the patient was not feeling well, she came to the emergency room and was seen by Dr. Barfield initially, then by Dr. Nguyen. White count, BUN and creatinine were fine. Amylase was 192, glucose 142. UA showed ketones positive. CT of abdomen and pelvis did not show any any acute findings. Despite the patient was receiving IV fluids and Phenergan, she was not able to keep anything down, kept dry heaving and vomiting. At that time, the patient was admitted to the hospital for intractable nausea, vomiting and acute gastritis. REVIEW OF SYSTEMS: CONSTITUTIONAL: Weakness, tiredness. No fever, no chills. HEENT: Normal. ENDOCRINE: No weight gain; no weight loss. CVS: No chest pain. No PND, no orthopnea. No shortness of breath. No PND, no orthopnea. RESPIRATORY: No cough, no congestion. No hemoptysis. GI: Nausea and vomiting with dry heaves. Abdominal pain. No melena. : No hematuria. No polyuria. MUSCULOSKELETAL: No joint swelling. PSYCHIATRIC: Not anxious. No depression. No suicidal thoughts. No homicidal thoughts. SKIN: Intact, no open lesions. 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 FAMILY HISTORY: Significant for high blood pressure. MEDICATIONS: (HOME) Hydrocodone Bit/Acetaminophen one tab p.o. t.i.d. p.r.n. Fluoxetine (Prozac) 40 mg p.o. daily Clonazepam (Klonopin) 1 mg p.o. t.i.d. Methocarbamol 500 mg p.o. bedtime Topamax 50 mg p.o. b.i.d. Gabapentin 200 mg p.o. t. i.d. ALLERGIES: NKDA PHYSICAL EXAMINATION: V/S: BP 134/94, respiratory rate 24, heart rate 74, temperature 96.6. HEENT: Atraumatic, normocephalic. No scleral icterus. Mucosa dry. Sick looking lady lying in bed in distress from vomiting and abdominal pain. NECK: Supple. No JVD, no bruit. No lymphadenopathy. No thyromegaly. HEART: S1, S2 normal. No murmur. No cyanosis or clubbing. No ascites. LUNGS: Clear to auscultation. No rales or rhonchi. ABDOMEN: Soft; tender all over. Bowel sounds are hypoactive. No CVA tenderness. No rigidity or guarding. EXTREMITIES: No cyanosis, clubbing or pedal edema. MUSCULOSKELETAL: Normal joints, no swelling. NEUROLOGIC: Awake, alert, oriented times three. LYMPHATIC: No lymph nodes palpable. LABS: Sodium 140, potassium 3.7, chloride 105, bicarb 21, BUN 16, creatinine 0.93. White count 10.11, hemoglobin 13.6, hematocrit 38.7, platelet count 308. Urine protein positive, ketone positive, bacteria positive. ASSESSMENT: 1. INTRACTABLE NAUSEA/VOMITING,ABDOMINAL PAIN/ACUTE GASTROENTERITIS/ACUTE GASTRITIS 2. DJD SPINE 3. DEPRESSION 4. ANXIETY PLAN: 1. Admit the patient to the regular floor 2. NPO 3. IV fluids 4. Protonix 40 mg p.o. b.i.d. 5. Rocephin 1 gm daily 6. Ativan 1 mg q.6hr 7. Zofran 4 mg q.6hr p.r.n. 8. NPO 9. Will follow with the patient in daily rounds TIME SPENT: MORE THAN 70 minutes [facility]
[2016-12-01] MEDS: PROTONIX PO SCH (16:23)
[2016-12-01] MEDS ORDERED: ROBAXIN PO SCH (21:00)
[2016-12-02] MEDS: GI COCKTAIL PO PRN ×3 (03:05→14:34)
[2016-12-02] MEDS: SODIUM CHLORIDE 1,000 ML IV SCH (03:06)
[2016-12-02] MEDS: ZOFRAN 4 MG/2 ML IVP SCH ×2 (05:02→12:24)
[2016-12-02] MEDS: KLONOPIN PO SCH ×2 (05:03→12:04)
[2016-12-02] MEDS: NEURONTIN PO SCH ×2 (05:03→12:04)
[2016-12-02 05:13] VITALS: BP 117/66; TEMP 97.1
[2016-12-02] MEDS: PROTONIX PO SCH (05:37)
[2016-12-02 05:44] LABS: BASOPHILS # (AUTO) 0.1 K/uL (0-0.2); BASOPHILS % (AUTO) 0.8 % (0.0-3.0); EOSINOPHILS # (AUTO) 0.1 K/ul (0.0-0.7); EOSINOPHILS % (AUTO) 1.4 % (0.0-7.0); HEMATOCRIT 33.6 % (37.0-47.0); HEMOGLOBIN 11.6 g/dl (12.0-16.0); IMMATURE GRANULOCYTE % (AUTO) 0.3 % (0.0-5.0); LYMPHOCYTES # (AUTO) 1.8 K/uL (0.60-3.4); LYMPHOCYTES % (AUTO) 24.8 (10.0-50.0); MEAN CORPUSCULAR HEMOGLOBIN 29.2 pg (27.0-31.0); MEAN CORPUSCULAR HGB CONC 34.5 (31.8-35.4); MEAN CORPUSCULAR VOLUME 84.6 fl (81.0-99.0); MONOCYTES # (AUTO) 0.5 K/uL (0.4-2.0); MONOCYTES % (AUTO) 6.8 (0-10); NEUTROPHILS # (AUTO) 4.9 K/ul (2.0-6.9); NEUTROPHILS % (AUTO) 65.9; PLATELET COUNT 200 10^3/uL (140-440); RED BLOOD COUNT 3.97 10^6/ul (4.20-5.40); WHITE BLOOD COUNT 7.39 K/ul (4.6-10.2)
[2016-12-02 06:11] LABS: ALBUMIN 3.5 g/dL (3.4-5.0); ALBUMIN/GLOBULIN RATIO 1.3; ANION GAP 12.5; BILIRUBIN,TOTAL 0.34 mg/dL (0.00-1.20); BUN/CREATININE RATIO 8.98; CALCIUM 8.5 mg/dL (8.2-10.2); CREATININE 0.89 mg/dL (0.60-1.30); POTASSIUM 3.5 mmol/L (3.5-5.10); TOTAL PROTEIN 6.2 g/dL (6.4-8.2)
[2016-12-02] MEDS: NORCO 7.5-325 PO PRN ×2 (08:16→14:34)
[2016-12-02] MEDS: TOPAMAX PO SCH (08:16)
[2016-12-02] MEDS: ROCEPHIN 1 GM in SODIUM CHLORIDE 50 ML IV SCH (08:17)
[2016-12-02] MEDS: PROZAC PO SCH (08:19)
--- NOTE | 2016-12-02 12:49 | PCM.PROG ---
Attending Provider: ATTENDING PROVIDER: [facility] DATE OF SERVICE: 12/02/16 SUBJECTIVE: This 36 year old WHITE/ F was hospitalized 11/30/16. The patient states she has had diarrhea throughout the night but no vomiting. She is able to keep down clear liquids. REVIEW OF SYSTEMS: CONSTITUTIONAL: No fever, no chills. ENDOCRINE: No weight loss or weight gain. HEENT: No sinus drainage, no sore throat. CVS: No angina symptoms. No CHF symptoms. No palpitations. No atypical chest pain for CAD. No shortness of breath. RESPIRATORY: No cough, no hemoptysis. GI: No melena. No abdominal pain. No nausea, no vomiting. : No hematuria. No polyuria. SKIN: No rash. No wounds. MUSCULOSKELETAL: No pain. 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 No headache. No double vision. PSYCHIATRIC: Not anxious; no depression. No suicidal thoughts. No homicidal thoughts. PHYSICAL EXAMINATION: GENERAL: Lying in bed in no distress. VITAL SIGNS: Temperature 97.1 F, Pulse 51, Respiratory Rate 20, BP 117/66, Pulse Ox 98% HEENT: Normocephalic, atraumatic. Mucosa is dry, pallor positive. NECK: No JVP, no carotid bruit. No lymphadenopathy. CARDIAC: S1, S2, no S3. No murmur, gallop or regurgitation. LUNGS: Clear to auscultation. ABDOMEN: Soft, non-tender. Bowel sounds active. No rigidity, guarding or CVA tenderness. EXTREMITIES: No clubbing, cyanosis or edema. NEUROLOGIC: Awake, alert and oriented x3. LYMPHATIC: No palpable lymph nodes SKIN: Not dry. Intact. MUSCULOSKELETAL: No joint swelling. LAB REVIEW: 12/02/16 05:20 12/02/16 05:20 12/02/16 05:20: WBC 7.39 D, RBC 3.97 L, Hgb 11.6 L, Hct 33.6 L, MCV 84.6, MCH 29.2, MCHC 34.5, RDW Coeff of Yesi 12.9, Plt Count 200, Immature Gran % (Auto) 0.3, Neut % (Auto) 65.9, Lymph % (Auto) 24.8, [place] % (Auto) 6.8, Eos % (Auto) 1.4, Baso % (Auto) 0.8, Immature Gran # (Auto) 0.0, Neut # 4.9, Lymph # 1.8, [place] # 0.5, Eos # 0.1, Baso # 0.1, Sodium 139, Potassium 3.5, Chloride 110 H, Carbon Dioxide 20 L, Anion Gap 12.5, BUN 8, Creatinine 0.89, Estimated GFR (MDRD ) 72.00, BUN/Creatinine Ratio 8.98, Glucose 98, Calcium 8.5, Total Bilirubin 0.34, AST 12 L, ALT 10 L, Alkaline Phosphatase 32 L, Total Protein 6.2 L, Albumin 3.5, Globulin 2.7, Albumin/Globulin Ratio 1.30 ASSESSMENT: 1. Acute gastroenteritis 2. Dehydration 3. Intractable nausea and vomiting 4. Obesity PLAN: 1. Discontinue Rocephin after the final dose today 2. Stop IV fluids 3. Soft diet and see how tolerates 4. Zantac 150 b.i.d. 5. Continue Zofran IV p.r.n. Plan and coordination of the patient's care discussed in the presence of Clinical Nursing Assistant and nurse. CONDITION: Stable SCRIBED BY: CHRISTEN GOFF, Cell Cleaner scribed while in presence of service performed by [facility] on 12/02/16 ([id number])
--- NOTE | 2016-12-02 15:14 | PN ---
DATE OF SERVICE: 12/01/16 SUBJECTIVE: The patient was admitted with the intractable nausea, vomiting and abdominal pain. CT scan was negative. The patient is sitting in the bed and says that she is feeling a little bit better. Vomited early in the morning. Been drinking some liquids as she is able to tolerated some of it. REVIEW OF SYSTEMS: CONSTITUTIONAL: No fever, no chills. HEENT: Normal. ENDOCRINE: No weight gain, no weight loss. CVS: No angina symptoms. No CHF symptoms. No palpitations. No atypical chest pain for CAD. No shortness of breath. No PND, no orthopnea. RESPIRATORY: No cough, no hemoptysis. GI: No nausea, no vomiting. No abdominal pain. : No hematuria. No polyuria. MUSCULOSKELETAL:. No joint swelling. PSYCHIATRIC: Not anxious. No depression. No suicidal thoughts. No homicidal thoughts. SKIN: Intact. No rash. PHYSICAL EXAMINATION: V/S: Blood pressure 135/87, respiratory rate 16, heart rate 78 and temperature 98.9. HEENT: Normocephalic, atraumatic. Mucosa dry. Pallor positive. No icterus. NECK: Supple. No JVD, no carotid bruit. No lymphadenopathy. LUNGS: Decreased and clear to auscultation. No rales or rhonchi. HEART: S1, S2 normal. No S3. No murmur, gallop or regurgitation. ABDOMEN: Soft, discomfort all over the belly. Increased Bowel sounds. No rigidity. No rebound or guarding. No CVA tenderness. EXTREMITIES: No clubbing, cyanosis or pedal edema. MUSCULOSKELETAL: No joint swelling. NEUROLOGIC: Awake, alert, oriented times three. No focal deficit. LYMPHATIC: No lymph nodes palpable. SKIN: Intact. LABS: WBC 12.76, hgb 11.6, hct 34.2, plt count 225, sodium 139, potassium 3.4, chloride 108, bicarb 22, BUN 6, creatinine 0.79. ASSESSMENT: 1. Acute gastritis 2. Intractable nausea and vomiting 3. Dehydration 4. Hypokalemia 5. Hyperamylasemia , elevated amylase PLAN: 1. Continue the clear liquids 2. Will order amylase and lipase again today 3. Zofran and GI cocktail and Ativan Will followup the patient in daily rounds. TIME SPENT: More than 30 minutes MTDD
--- NOTE | 2016-12-20 08:29 | DS ---
DATE OF SERVICE: 12/02/16 FINAL DIAGNOSIS: 1. INTRACTABLE NAUSEA WITH VOMITING 2. ACUTE GASTRITIS 3. ANEMIA 4. HISTORY OF GASTROESOPHAGEAL REFLUX DISEASE 5. HIATAL HERNIA 6. TUBAL LIGATION 7. TONSILLECTOMY 8. OSTEOARTHRITIS 9. DEPRESSION 10. ANXIETY 11. HISTORY OF ANEMIA PLAN: 1. Discharge the patient home. 2. Zantac 150 mg p.o. twice daily. 3. Zofran 4 mg three times a day. DIET INSTRUCTIONS: Soft diet, frequent small meals. ACTIVITY: Gradually resume as tolerated. DISEASE SPECIFIC EDUCATION: About gastroenteritis, dehydration, abdominal pain was discussed with the patient in detail. Weight loss, diet control and lifestyle modifications was discussed with the patient in detail. She verbalized understanding. HOME MEDICATIONS: Klonopin 1 mg three times daily Neurontin 200 mg p.o. three times daily Zofran 4 mg Zantac 150 mg twice daily HOSPITAL COURSE: Stephanie Orta, who is a 36 year old female, came to the emergency room with nausea, vomiting and intractable abdominal pain. CT of the abdomen and pelvis was negative. The patient was given Dilaudid and Phenergan and this did not help. She could not keep anything down. At that time, the patient is admitted to the hospital for the intractable nausea vomiting. The patient was started on a GI cocktail of Protonix and Phenergan. Slowly and gradually, the patient started feeling better. Clear liquid was started and the diet was advanced as tolerated. She tolerated it well. She was up and about and did not have any complications. She started having some diarrhea, but the vomiting and nausea had resolved. Clear liquid was advanced to soft diet. She tolerated it well. The patient's mother came and had a lot of questions and concerns about the patient's health. She said that the patient has a lot of health issues and she had been going to the doctors properly and wanted help. She would come and get evaluated at the [facility]. As the patient tolerated the soft diet and had no vomiting, she is being discharged home. TIME SPENT: MORE THAN 60 MINUTES TODAY Y[place]A
== END 2016-12-02 15:19 | disposition home or self-care (01) | DRG 392 ==
LOC: ED 05:19 → MEDSURG A 08:26
PROVIDERS: ADMIT Emergency Medicine; ATTEND Emergency Medicine
DX: R11.2 Nausea with vomiting, unspecified (principal); K29.00 Acute gastritis without bleeding; R19.7 Diarrhea, unspecified; K44.9 Diaphragmatic hernia without obstruction or gangrene; R74.8 Abnormal levels of other serum enzymes; D64.9 Anemia, unspecified; E86.0 Dehydration; E87.6 Hypokalemia; F41.8 Other specified anxiety disorders; M19.90 Unspecified osteoarthritis, unspecified site; E66.9 Obesity, unspecified; Z86.2 Personal history of diseases of the blood and blood-forming organs and certain disorders involving the immune mechanism; Z87.19 Personal history of other diseases of the digestive system; Z79.899 Other long term (current) drug therapy
CPT/HCPCS: 36415; 80053; 81001; 82150; 82962; 83690; 85025; 87086; 96361; 96365; 96375; 96376; 99284

== ENCOUNTER 2016-12-07 08:22 | Outpatient (CLI) ==
[2016-12-07 08:44] LABS: BASOPHILS # (AUTO) 0.1 K/uL (0-0.2); BASOPHILS % (AUTO) 0.8 % (0.0-3.0); EOSINOPHILS # (AUTO) 0.2 K/ul (0.0-0.7); EOSINOPHILS % (AUTO) 3.2 % (0.0-7.0); HEMOGLOBIN 12.8 g/dl (12.0-16.0); IMMATURE GRANULOCYTE % (AUTO) 0.4 % (0.0-5.0); LYMPHOCYTES # (AUTO) 1.6 K/uL (0.60-3.4); LYMPHOCYTES % (AUTO) 22.1 (10.0-50.0); MEAN CORPUSCULAR HGB CONC 34.6 (31.8-35.4); MEAN CORPUSCULAR VOLUME 83.7 fl (81.0-99.0); MONOCYTES # (AUTO) 0.4 K/uL (0.4-2.0); MONOCYTES % (AUTO) 5.6 (0-10); NEUTROPHILS # (AUTO) 4.8 K/ul (2.0-6.9); NEUTROPHILS % (AUTO) 67.9; PLATELET COUNT 268 10^3/uL (140-440); RED BLOOD COUNT 4.42 10^6/ul (4.20-5.40); WHITE BLOOD COUNT 7.12 K/ul (4.6-10.2)
[2016-12-07 09:01] LABS: ALBUMIN 3.9 g/dL (3.4-5.0); ALBUMIN/GLOBULIN RATIO 1.3; ANION GAP 16.9; BILIRUBIN,TOTAL 0.49 mg/dL (0.00-1.20); BUN/CREATININE RATIO 11.49; CALCIUM 9.4 mg/dL (8.2-10.2); CREATININE 0.87 mg/dL (0.60-1.30); POTASSIUM 3.9 mmol/L (3.5-5.10); TOTAL PROTEIN 6.9 g/dL (6.4-8.2)
== END 2016-12-07 08:23 | disposition home or self-care (01) ==
LOC: LAB 08:22
PROVIDERS: ATTEND Emergency Medicine
DX: D50.8 Other iron deficiency anemias (principal); K62.5 Hemorrhage of anus and rectum; K29.50 Unspecified chronic gastritis without bleeding
CPT/HCPCS: 36415; 80053; 85025

== ENCOUNTER 2017-08-14 08:30 | Observation (INO) ==
[2017-08-14] MEDS ORDERED: ZOFRAN 4 MG/2 ML IM STA (10:04)
--- NOTE | 2017-08-14 10:07 | ED.PDOC ---
General ED Provider: Dr. LUPE LEVINE Chief Complaint: Nausea/Vomiting Stated Complaint: NAUSEA, VOMITING AND ABDOMINAL PAIN Time Seen by Physician: 08:34 (SEEN WITH ZAHRAA CLEMENTE AT ALL TIMES ) Mode of Arrival: Walk-In Information Source: [facility] Referred to ED by: Other (SIMILAR ISSUE IN THE PAST) Nursing and Triage Documentation Reviewed and Agree: No Reviewed sepsis parameters & appropriate labs ordered?: No System Inflammatory Response Syndrome: Not Applicable Sepsis Protocol: For patient's 13 years and over: Temp is 96.8 and below OR 101 and greater Pulse >90 BPM Resp >20/minute Acutely Altered Mental Status Are patient's symptoms suggestive of a new infection, such as: -Pneumonia -Skin, Soft Tissue -Endocarditis -UTI -Bone, Joint Infection -Implantable Device -Acute Abdominal Infection -Wound Infection -Meningitis -Blood Stream Catheter Infection -Unknown System Inflammatory Response Syndrome: Not Applicable GI Complaint Exam - Abdominal Pain Complaint/Exam Onset: Gradual Duration: 1 DAY Symptoms Are: Still present Timing: Intermittent Initial Severity: Mild Current Severity: Mild Location of Pain: Diffuse Radiates To: Denies: Chest, Back, Flank, LLQ, RLQ, Inguinal Character: Reports: Dull Aggravating: Reports: None Alleviating: Reports: None Associated Signs and Symptoms: Reports: Nausea, Vomiting. Denies: Diaphoresis, Fever, Cough, Chest pain, Dizziness, Back pain, Constipation, Blood in stool, Dysuria, Urinary frequency, Decreased urine output, Decreased appetite, Vaginal bleeding, Vaginal discharge, Diarrhea, Sore throat, Decreased activity Related History: Reports: Similar episode AAA Risk Factors: Reports: None Cardiac Risk Factors: Reports: None Ectopic Risk Factors: Reports: None Ovarian Torsion Risk Factors: Reports: None Surgical Obstruction Risk Factors: Reports: None Related Surgical History: Reports: None Patient Rh Status: Unknown Abdominal Findings: Present: None Review of Systems - Review Of Systems Constitutional: Reports: No symptoms Eyes: Reports: No symptoms Ears, Nose, Mouth, Throat: Reports: No symptoms Respiratory: Reports: No symptoms Cardiac: Reports: No symptoms GI: Reports: Abdominal pain, Nausea, Poor appetite, Vomiting : Reports: No symptoms Musculoskeletal: Reports: No symptoms Skin: Reports: No symptoms Neurological: Reports: No symptoms Endocrine: Reports: No symptoms Hematologic/Lymphatic: Reports: No symptoms All Other Systems: Reviewed and Negative Past Medical History - Past Medical History Previously Healthy: Yes Endocrine: Reports: None Cardiovascular: Reports: None Respiratory: Reports: None Hematological: Reports: None Gastrointestinal: Reports: GERD Genitourinary: Reports: None Neuro/Psych: Reports: Anxiety, Depression, Other (OCD) Musculoskeletal: Reports: None Cancer: Reports: None Last Menstrual Period: just finishing - Surgical History General Surgical History: Reports: Tubal ligation, Cholecystectomy - Family History Family History: Reports: Unknown - Social History Smoking Status: Former smoker Hx Substance Use: No Alcohol Screening: None Physical Exam - Physical Exam Appearance: Well-appearing, No pain distress, Well-nourished Pain Distress: Mild Eyes: ELÍAS, EOMI, Conjunctiva clear ENT: Ears normal, Nose normal, Oropharynx normal Respiratory: Airway patent, Breath sounds clear, Breath sounds equal, Respirations nonlabored Cardiovascular: RRR, Pulses normal, No rub, No murmur GI/: Soft, Nontender, No masses, Bowel sounds normal, No Organomegaly Musculoskeletal: Normal strength, ROM intact, No edema, No calf tenderness Skin: Warm, Dry, Normal color Neurological: Sensation intact, Motor intact, Reflexes intact, Cranial nerves intact, Alert, Oriented Psychiatric: Affect appropriate, Mood appropriate Interpretation - Radiology Interpretation Radiology Interpretation By: Radiologist Radiology Results: No acute changes Critical Care Note - Critical Care Note Total Time (mins): 0 Course - Course Hematology/Chemistry: 08/14/17 09:03 08/14/17 09:03 Orders, Labs, Meds: Lab Review 08/14/17 08/14/17 08/14/17 09:03 09:03 09:03 WBC 9.43 RBC 4.28 Hgb 12.6 Hct 37.2 MCV 86.9 MCH 29.4 MCHC 33.9 RDW Coeff of Yesi 13.2 Plt Count 200 Immature Gran % (Auto) 0.4 Neut % (Auto) 83.1 Lymph % (Auto) 10.8 [place] % (Auto) 4.5 Eos % (Auto) 0.6 Baso % (Auto) 0.6 Immature Gran # (Auto) 0.0 Neut # (Auto) 7.8 H Lymph # (Auto) 1.0 [place] # (Auto) 0.4 Eos # (Auto) 0.1 Baso # (Auto) 0.1 Sodium 139 Potassium 4.0 Chloride 106 Carbon Dioxide 23 Anion Gap 14.0 BUN 17 Creatinine 0.85 Estimated GFR (MDRD) 76.00 BUN/Creatinine Ratio 20.00 Glucose 100 Calcium 9.1 Total Bilirubin 0.4 AST 14 L ALT 12 Alkaline Phosphatase 35 L Total Protein 6.6 Albumin 3.7 Globulin 2.9 Albumin/Globulin Ratio 1.28 Amylase 174 H Lipase 11 Serum , Qual Negative Urine Color Urine Clarity Urine pH Ur Specific [place] Urine Protein Urine Glucose (UA) Urine Ketones Urine Blood Urine Nitrite Urine Bilirubin Urine Urobilinogen Ur Leukocyte Esterase Urine Microscopic RBC Ur Squamous Epith Cells Urine Bacteria Urine Mucus 08/14/17 09:15 WBC RBC Hgb Hct MCV MCH MCHC RDW Coeff of Yesi Plt Count Immature Gran % (Auto) Neut % (Auto) Lymph % (Auto) [place] % (Auto) Eos % (Auto) Baso % (Auto) Immature Gran # (Auto) Neut # (Auto) Lymph # (Auto) [place] # (Auto) Eos # (Auto) Baso # (Auto) Sodium Potassium Chloride Carbon Dioxide Anion Gap BUN Creatinine Estimated GFR (MDRD) BUN/Creatinine Ratio Glucose Calcium Total Bilirubin AST ALT Alkaline Phosphatase Total Protein Albumin Globulin Albumin/Globulin Ratio Amylase Lipase Serum , Qual Urine Color Yellow Urine Clarity Clear Urine pH 7.0 Ur Specific [place] 1.025 Urine Protein 1+ Urine Glucose (UA) Negative Urine Ketones Trace Urine Blood Trace-intact Urine Nitrite Negative Urine Bilirubin Negative Urine Urobilinogen 0.2 Ur Leukocyte Esterase Negative Urine Microscopic RBC 0-2 Ur Squamous Epith Cells 0-2 Urine Bacteria 1+ Urine Mucus 3+ Orders Category Date Time Status AMYLASE Stat LAB 08/14/17 09:03 Completed CBC W/ AUTO DIFF Stat LAB 08/14/17 09:03 Completed COMPREHENSIVE METABOLIC PANEL Stat LAB 08/14/17 09:03 Completed LIPASE Stat LAB 08/14/17 09:03 Completed SERUM Stat LAB 08/14/17 09:03 Completed URINALYSIS C & S IF INDICATED Stat LAB 08/14/17 09:15 Completed URINE CULTURE Stat LAB 08/14/17 09:15 Received Ondansetron HCl/Pf [Zofran 4 mg/2 ml] MEDS 08/14/17 10:04 Stat 4 mg IM ONCE STA CT ABDOMEN/PELVIS WO CONTRAST Stat RADS 08/14/17 08:57 Ordered Vital Signs: Temp Pulse Resp BP Pulse Ox 08/14/17 08:31 97.0 F L 59 L 18 124/80 98 Departure - Departure Time of Disposition: 11:00 Disposition: HOME SELF-CARE Discharge Problem: Nausea, Vomiting Abdominal pain Qualifiers: Abdominal location: generalized Qualified Code(s): R10.84 - Generalized abdominal pain Instructions: Abdominal Pain (ED) Condition: Good Pt referred to PMD for follow-up: Yes IPMP verified?: No Additional Instructions: Please call your Family Physician as soon as possible to schedule a follow-up appointment. Allergies/Adverse Reactions: Allergies morphine Adverse Reaction (Verified 08/14/17 08:36) Vomiting Home Medications: Ambulatory Orders Clonazepam [Klonopin] 1 mg PO TID 07/12/13 Fluoxetine HCl [Prozac] 40 mg PO DAILY 07/12/13 Hydrocodone Bit/Acetaminophen [[place] 7.5-325] 1 tab PO TID PRN 07/12/13 Methocarbamol 500 mg PO BEDTIME 07/12/13 Gabapentin [Neurontin] 200 mg PO TID 08/22/16 Ranitidine HCl [Zantac] 300 mg PO BID 01/12/17 Ondansetron HCl [Zofran Tab] 4 mg PO Q8H #2 tablet 08/14/17 Disposition Discussed With: Patient
--- NOTE | 2017-08-14 10:35 | CT ---
EXAM: CT ABDOMEN AND PELVIS HISTORY: Abdominal pain, nausea and vomiting TECHNIQUE: CT abdomen and pelvis without intravenous contrast. Images were reconstructed using 5 mm section thickness. Reformations were prepared. COMPARISON: 11/30/2016 FINDINGS: Diagnostic limitations exist without including contrast enhanced images. No focal hepatic or splenic lesions. Gallbladder is absent. Pancreas and adrenal glands are within normal limits. Kidneys and ureters are unremarkable. Abdominal aorta is normal. No gastric distension. The appendix has been removed. Bowel gas pattern is normal. Uterus and urin aung bladder are normal. No ascites or inflammatory infiltration of the abdominal fat. Ventral abdominal wall is intact. Bones reveal transitional vertebral body anatomy at the lumbosacra l junction with moderate degenerative disc disease at L5/S1 (lowermost fully formed disc space taken as L5/S1). Lung bases are free of acute infiltrate. No pneumoperitoneum. IMPRESSION: No acute intra-abdominal or pelvic abnormality. No etiology for the patient's symptoms w as found.
[2017-08-14] MEDS ORDERED: NORCO 7.5-325 PO PRN (11:42)
[2017-08-14] MEDS ORDERED: GI COCKTAIL PO STA (12:38)
[2017-08-14] MEDS ORDERED: PHENERGAN 25 MG/ML VIAL 25 MG in SODIUM CHLORIDE 50 ML IV STA (13:30)
[2017-08-14] MEDS ORDERED: PHENERGAN 25 MG/ML VIAL ONE ×2 (13:38→19:15)
[2017-08-14] MEDS: SODIUM CHLORIDE 1,000 ML IV SCH (13:48)
[2017-08-14 14:24] VITALS: BMI 33.5
[2017-08-14] MEDS ORDERED: NON-FORMULARY MEDICATION (Clonazepam [Klonopin] 1 MG) PO SCH (15:00)
[2017-08-14] MEDS: NEURONTIN PO SCH ×2 (15:20→21:00)
[2017-08-14] MEDS: PROTONIX IV IVP SCH (15:20)
[2017-08-14] MEDS: CARAFATE PO SCH ×3 (15:20→20:59)
[2017-08-14] MEDS: KLONOPIN PO SCH ×2 (15:21→21:00)
[2017-08-14] MEDS ORDERED: PHENERGAN 25 MG/ML VIAL 12.5 MG in SODIUM CHLORIDE 50 ML IV STA (18:59)
[2017-08-15] MEDS: ZOFRAN 4 MG/2 ML IVP PRN ×3 (02:11→21:54)
[2017-08-15] MEDS: SODIUM CHLORIDE 1,000 ML IV SCH ×2 (04:16→17:32)
[2017-08-15] MEDS: CARAFATE PO SCH ×4 (05:52→20:38)
[2017-08-15] MEDS: NEURONTIN PO SCH ×3 (08:32→20:38)
[2017-08-15] MEDS: KLONOPIN PO SCH ×3 (08:32→20:38)
[2017-08-15] MEDS: PROTONIX IV IVP SCH (08:33)
[2017-08-16 05:45] VITALS: BP 131/85; TEMP 97.7
[2017-08-16] MEDS: SODIUM CHLORIDE 1,000 ML IV SCH (06:02)
[2017-08-16] MEDS: CARAFATE PO SCH (06:02)
[2017-08-16] MEDS: ZOFRAN 4 MG/2 ML IVP PRN (07:57)
[2017-08-16] MEDS: PROTONIX IV IVP SCH (09:02)
[2017-08-16] MEDS: NEURONTIN PO SCH (09:02)
[2017-08-16] MEDS: KLONOPIN PO SCH (09:02)
--- NOTE | 2017-08-17 11:07 | HP ---
DATE OF SERVICE: 08/14/17 CHIEF COMPLAINT: Nausea and vomiting. HISTORY OF PRESENT ILLNESS: This 36-year-old female woke up with severe nausea, vomiting, unable to keep anything down. Every time she eats or drinks she vomits. She has epigastric pain radiating to the back. She had a normal bowel movement in the morning. She had a cholecystectomy and tubal in the past. She was seen by Dr. Arita. White count was normal. Amylase is slightly elevated at 174. AST 14. test was negative. CT abdomen and pelvis done, did not show any acute pathology. She was given Phenergan, Zofran and IV fluids. The patient was still vomiting, unable to keep anything down. The vomitus is bile colored. At that time the patient was admitted to the hospital for dehydration, abdominal pain and intractable nausea and vomiting. REVIEW OF SYSTEMS: CONSTITUTIONAL: Positive for weakness and tiredness. No fever, no chills. HEENT: Normal. ENDOCRINE: No weight gain; no weight loss. CVS: No chest pain. No PND, no orthopnea. No shortness of breath. No PND, no orthopnea. RESPIRATORY: No cough, no congestion. No hemoptysis. GI: Positive for nausea and vomiting, unable to keep anything down. Epigastric pain. No melena. : No hematuria. No polyuria. MUSCULOSKELETAL: No joint swelling. PSYCHIATRIC: Not anxious. No depression. No suicidal thoughts. No homicidal thoughts. SKIN: Intact, no open lesions. PAST MEDICAL HISTORY: GERD Hiatal hernia Osteoarthritis Depression/anxiety PAST SURGICAL HISTORY: Tubal ligation Cholecystectomy Appendectomy Tonsillectomy PERSONAL HISTORY: The patient use to smoke - stopped in 2012. No alcohol use. No illicit drug use. FAMILY HISTORY: Significant for hypertension MEDICATIONS: (HOME) [place] Prozac Klonopin Methocarbamol Neurontin Zantac ALLERGIES: MORPHINE PHYSICAL EXAMINATION: V/S: BP 124/80, respiratory rate 18, heart rate 59, temperature 97.0, saturation 98. HEENT: Atraumatic, normocephalic. No scleral icterus. Sick-looking lady turning and tossing in the bed. There is a bag beside the patient with bile vomitus in the bag. Mucosa dry. Pallor positive. NECK: Supple. No JVD, no bruit. No lymphadenopathy. No thyromegaly. HEART: S1, S2 normal. No murmur. No cyanosis or clubbing. No ascites. LUNGS: Clear to auscultation. No rales or rhonchi. ABDOMEN: Soft. Epigastric discomfort. No tenderness. Bowel sounds are hypoactive. No CVA tenderness. No rigidity or guarding. EXTREMITIES: No pedal edema. No cyanosis or clubbing MUSCULOSKELETAL: Normal joints, no swelling. NEUROLOGIC: The patient is awake, alert. SKIN: Intact; no open lesions. LYMPHATIC: No lymph nodes palpable. LABS: Sodium 139, potassium 4.4, chloride 106, bicarb 23, BUN 17, creatinine 0.85, glucose 100. Amylase 174, lipase is 11. White count 9.43, hemoglobin 12.6, hematocrit 37.2, platelet count 200. ASSESSMENT: 1. INTRACTABLE NAUSEA AND VOMITING 2. DEHYDRATION 3. OSTEOARTHRITIS 4. DJD SPINE PLAN: 1. Admit patient for observation 2. IV fluids 3. GI cocktail 4. Protonix 40 mg p.o. b.i.d. 5. Carafate at a.c. and h.s. 6. Zofran 4 mg q.4 to 6 hr p.r.n. 7. Clear liquid diet at this time TIME SPENT: MORE THAN 75 minutes MTDD
--- NOTE | 2017-10-03 13:08 | PN ---
DATE OF SERVICE: 08/15/17 SUBJECTIVE: The patient was admitted with acute intractable nausea and vomiting. Pain to epigastric area still, greenish yellow emesis but today is better. She can tolerate clear liquids today. REVIEW OF SYSTEMS: CONSTITUTIONAL: No fever, no chills. HEENT: Normal. ENDOCRINE: No weight gain, no weight loss. CVS: No angina symptoms. No CHF symptoms. No palpitations. No atypical chest pain for CAD. No shortness of breath. No PND, no orthopnea. RESPIRATORY: No cough, no hemoptysis. GI: Small amount of emesis but better today. Pain to epigastric area. : No hematuria. No polyuria. MUSCULOSKELETAL: No joint swelling. PSYCHIATRIC: Not anxious. No depression. No suicidal thoughts. No homicidal thoughts. SKIN: Intact. No rash. PHYSICAL EXAMINATION: V/S: BP 100/56, respiratory rate 18, heart rate 82, temperature 98. HEENT: Normocephalic, atraumatic. Mucosa dry. Pallor positive. NECK: Supple. No JVD, no carotid bruit. No lymphadenopathy. LUNGS: Clear to auscultation. No rales or rhonchi. HEART: S1, S2 normal. No S3. No murmur, gallop or regurgitation. ABDOMEN: Epigastric discomfort on exam. Bowel sounds active. No rigidity. No rebound or guarding. No CVA tenderness. EXTREMITIES: No cyanosis, clubbing or pedal edema. MUSCULOSKELETAL: No joint swelling. NEUROLOGIC: Awake, alert, oriented times three. No focal deficit. LYMPHATIC: No lymph nodes palpable. SKIN: Intact. LABS: Sodium 140, potassium 3.7, chloride 109, bicarb 22, BUN 13, creatinine 0.75, glucose 101. White count 11.29, hemoglobin 11.8, hematocrit 34.7, platelet count 212. ASSESSMENT: 1. ACUTE INTRACTABLE NAUSEA, VOMITING/ACUTE GASTRITIS 2. GERD 3. LOWER BACK PAIN 4. ABDOMINAL PAIN 5. CHOLECYSTECTOMY 6. APPENDECTOMY PLAN: 1. Zofran 2. IV fluids 3. Phenergan p.r.n. 4. Protonix 5. Advance diet. 6. Out of bed to chair. 7. Activity as tolerated. 8. No anticoagulation as the patient can be ambulatory. TIME SPENT: More than 35 minutes MTDD
--- NOTE | 2017-10-03 13:16 | DS ---
DATE OF SERVICE: 08/16/17 FINAL DIAGNOSIS: 1. INTRACTABLE NAUSEA, VOMITING, DEHYDRATION, GASTRITIS 2. ANEMIA MOST LIKELY DILUTIONAL 3. HISTORY OF CHOLECYSTECTOMY 4. APPENDECTOMY DISCHARGE INSTRUCTIONS: 1. Discharge home. 2. Followup in [facility] within 5 to 7 days. MEDICATIONS AT DISCHARGE: Klonopin Prozac Neurontin Hydrocodone Methacarbamol Colestid NEW PRESCRIPTIONS: Zofran 4 mg three times a day Carafate 1 gm a.c. and h.s. Zantac 150 mg p.o. b.i.d. DIET INSTRUCTIONS: Soft diet until followup visit with me in the office. ACTIVITY: Resume as tolerated. DISEASE SPECIFIC EDUCATION: Gastritis and need for endoscopy; soft and bland diet discussed, verbalized understanding. HOSPITAL COURSE: This 36-year-old female came to the emergency room with intractable nausea and vomiting, unable to keep anything down. Bilious vomiting. was negative. Amylase was slightly elevated 174. CT of abdomen and pelvis done in the Emergency Room by Dr. Arita showed no acute intraabdominal or pelvic abnormality. As the patient was not able to tolerate any food, admitted to observation, started on IV fluids, Protonix, Carafate and GI cocktail which did help the patient. By the next day, the patient was able to tolerate the clear liquids then advanced diet. She was up and about walking, did not have any complications. The patient does have these episodes on and off. She does not follow the strict gastritis or GERD diet. When she eats this food it exacerbates these symptoms. Otherwise, the patient will be scheduled for endoscopy and colonoscopy as an outpatient. She is tolerating the soft diet and encouraged to stay on soft diet for 5 to 7 days before she comes and sees me in the office. TIME SPENT: MORE THAN 75 MINUTES MTDD
== END 2017-08-16 11:10 | disposition home or self-care (01) ==
LOC: ED 08:30 → MEDSURG A 12:15
PROVIDERS: ADMIT Emergency Medicine; ATTEND Emergency Medicine
DX: R10.84 Generalized abdominal pain (principal); R11.2 Nausea with vomiting, unspecified; R74.8 Abnormal levels of other serum enzymes; K29.70 Gastritis, unspecified, without bleeding; E86.0 Dehydration; K21.9 Gastro-esophageal reflux disease without esophagitis; D64.9 Anemia, unspecified; M54.5 Low back pain; M19.90 Unspecified osteoarthritis, unspecified site; M47.9 Spondylosis, unspecified; Z79.899 Other long term (current) drug therapy; Z90.49 Acquired absence of other specified parts of digestive tract; Z90.89 Acquired absence of other organs
CPT/HCPCS: 36415; 80053; 81001; 82150; 83690; 84703; 85025; 87086; 96361; 96365; 96366; 96367; 96372; 96375; 96376; 99217; 99220; 99226; 99284

== ENCOUNTER 2017-09-26 17:17 | Observation (INO) ==
[2017-09-26] MEDS: SODIUM CHLORIDE 1,000 ML IV SCH (18:19)
[2017-09-26 18:35] VITALS: BMI 24.3
[2017-09-26] MEDS ORDERED: NON-FORMULARY MEDICATION (Clonazepam [Klonopin] 1 MG) PO SCH (21:00)
[2017-09-26] MEDS ORDERED: KLONOPIN ONE (22:50)
[2017-09-26] MEDS ORDERED: GI COCKTAIL PO STA (23:09)
[2017-09-26] MEDS: CARAFATE PO SCH (23:11)
[2017-09-26] MEDS: ROBAXIN PO SCH ×2 (23:12→23:17)
[2017-09-26] MEDS: NEURONTIN PO SCH ×2 (23:12→23:16)
[2017-09-26] MEDS: PROTONIX IV IVP SCH (23:17)
[2017-09-26] MEDS ORDERED: PROTONIX IV IVP STA (23:43)
[2017-09-27] MEDS: SODIUM CHLORIDE 1,000 ML IV SCH ×2 (03:20→14:34)
[2017-09-27] MEDS: CARAFATE PO SCH ×4 (06:10→20:18)
[2017-09-27] MEDS ORDERED: NON-FORMULARY MEDICATION (Fluoxetine Hcl [Prozac] 40 MG) PO SCH (09:00)
[2017-09-27] MEDS: PROTONIX IV IVP SCH (09:14)
[2017-09-27] MEDS: NEURONTIN PO SCH ×3 (09:14→20:18)
[2017-09-27] MEDS: PROZAC PO SCH (09:14)
[2017-09-27] MEDS: KLONOPIN PO SCH ×3 (09:14→20:18)
[2017-09-27] MEDS: GI COCKTAIL PO PRN ×3 (09:20→23:07)
[2017-09-27] MEDS: ZOFRAN 4 MG/2 ML IVP PRN ×3 (09:21→23:07)
--- NOTE | 2017-09-27 16:47 | CT ---
Exam: CT abdomen pelvis without intravenous contrast. Comparison: 08/14/2017. Reason for exam: Abdominal pain. FINDINGS: 3 mm nodule is seen in the right lung base. No pleural effusion, or focal consolidation. Image interpretation is limited by the lack of intravenous contrast administration. The gallbladder has been removed. The liver, spleen, adrenal glands, and pancreas appear grossly unremarkable within limitations of a n oncontrasted study. No hydronephrosis, hydroureter, or nephrolithiasis in either kidney. No focal small bowel dilatation or transition point. The appendix is not seen on the examination. No inflammatory changes are seen in the expected locati on of the appendix. There is a tiny only fat containing periumbilical hernia. No intra-abdominal free air. 2.8 cm cysts in the left colin pelvis presumably adnexal/ovarian The bladder appears grossly unremarkable. Degenerative changes are seen in the lumbosacral spine with intervertebral body disc space height los s and osteophyte formation. No suspicious appearing osteoblastic or osteolytic lesions. Impression: 1. No acute inflammatory findings are seen within the abdomen or pelvis. 2. 2.8 cm cystic hypodensity in the left colin pelvis presumably an adnexal/ovarian cyst. If clinica l concern exists for pelvic pathology, ultrasonographic evaluation may be performed for further neva cterization.
[2017-09-27] MEDS: ROBAXIN PO SCH (20:18)
[2017-09-28] MEDS: SODIUM CHLORIDE 1,000 ML IV SCH ×2 (04:02→16:14)
[2017-09-28] MEDS: CARAFATE PO SCH ×4 (05:54→21:10)
[2017-09-28] MEDS: ZOFRAN 4 MG/2 ML IVP PRN ×2 (05:56→14:57)
[2017-09-28] MEDS: GI COCKTAIL PO PRN (05:56)
[2017-09-28] MEDS: KLONOPIN PO SCH ×3 (08:39→21:09)
[2017-09-28] MEDS: PROTONIX IV IVP SCH ×3 (08:40→21:10)
[2017-09-28] MEDS: NEURONTIN PO SCH ×3 (08:40→21:10)
[2017-09-28] MEDS: PROZAC PO SCH (08:40)
[2017-09-28] MEDS: COLESTID PO SCH (10:49)
--- NOTE | 2017-09-28 14:18 | PN ---
DATE OF SERVICE: 09/27/17 SUBJECTIVE: The patient was admitted from the office for the intractable nausea and vomiting. Methamphetamine came positive but the patient swears that she did not take it. Some friend gave her the medical marijuana that's what she told me and she started using it. She didn't know that it was Meth. Abdominal pain is somewhat better but nausea is present. No fever or chills but dry heaving. REVIEW OF SYSTEMS: CONSTITUTIONAL: No fever, no chills. HEENT: Normal. ENDOCRINE: No weight gain, no weight loss. CVS: No angina symptoms. No CHF symptoms. No palpitations. No atypical chest pain for CAD. No shortness of breath. No PND, no orthopnea. RESPIRATORY: No cough, no hemoptysis. GI: No nausea, no vomiting. No abdominal pain. : No hematuria. No polyuria. MUSCULOSKELETAL: No joint swelling. PSYCHIATRIC: Not anxious. No depression. No suicidal thoughts. No homicidal thoughts. SKIN: Intact. No rash. PHYSICAL EXAMINATION: V/S: Blood pressure 142/92, respiratory rate 20, heart rate 54 and temperature 98.9 with saturation 100%. HEENT: Normocephalic, atraumatic. Mucosa dry. NECK: Supple. No JVD, no carotid bruit. No lymphadenopathy. LUNGS: Clear to auscultation. No rales or rhonchi. HEART: S1, S2 normal. No S3. No murmur, gallop or regurgitation. ABDOMEN: Soft, epigastric discomfort is present. Bowel sounds active. No rigidity. No rebound or guarding. No CVA tenderness. EXTREMITIES: No cyanosis, clubbing or pedal edema. MUSCULOSKELETAL: No joint swelling. NEUROLOGIC: Awake, alert, oriented times three. No focal deficit. LYMPHATIC: No lymph nodes palpable. SKIN: Intact. LABS: WBC 9.62, hgb 12.0, hct 36.2 plt count 197, sodium 137, potassium 4.0, chloride 111, bicarb 18, BUN 9, creatinine 0.82 and glucose 88. ASSESSMENT: 1. Acute gastritis and gastroenteritis 2. Dehydration 3. Meth came positive but patient refused taking it. 4. Elevated Amylase 5. History of hiatal hernia 6. Depression 7. Anxiety 8. Osteoarthritis PLAN: 1. Continue the Zofran 2. GI cocktail 3. CT of abdomen and pelvis 4. Amylase levels. TIME SPENT: More than 35 minutes MTDD
[2017-09-28] MEDS: ROBAXIN PO SCH (21:10)
[2017-09-29] MEDS: ZOFRAN 4 MG/2 ML IVP PRN ×3 (02:23→17:41)
[2017-09-29] MEDS: SODIUM CHLORIDE 1,000 ML IV SCH ×2 (04:34→17:41)
[2017-09-29] MEDS: CARAFATE PO SCH ×4 (05:43→20:49)
[2017-09-29] MEDS: COLESTID PO SCH (05:43)
[2017-09-29] MEDS: KLONOPIN PO SCH ×3 (09:18→20:49)
[2017-09-29] MEDS: PROZAC PO SCH (09:19)
[2017-09-29] MEDS: NEURONTIN PO SCH ×3 (09:19→20:49)
[2017-09-29] MEDS: PROTONIX IV IVP SCH ×2 (09:38→21:52)
--- NOTE | 2017-09-29 15:06 | PN ---
DATE OF SERVICE: 09/28/17 SUBJECTIVE: Still having abdominal pain and not able to keep anything down. Says that she has vomited 3-4 times since morning. REVIEW OF SYSTEMS: CONSTITUTIONAL: No fever, no chills. HEENT: Normal. ENDOCRINE: No weight gain, no weight loss. CVS: No angina symptoms. No CHF symptoms. No palpitations. No atypical chest pain for CAD. No shortness of breath. No PND, no orthopnea. RESPIRATORY: No cough, no hemoptysis. GI: No nausea, no vomiting. No abdominal pain. : No hematuria. No polyuria. MUSCULOSKELETAL: No joint swelling. PSYCHIATRIC: Not anxious. No depression. No suicidal thoughts. No homicidal thoughts. SKIN: Intact. No rash. PHYSICAL EXAMINATION: V/S: Blood pressure 114/73, respiratory rate 18, heart rate 60, temperature 98.0 with saturation 97%. HEENT: Normocephalic, atraumatic. Mucosa dry. NECK: Supple. No JVD, no carotid bruit. No lymphadenopathy. LUNGS: Clear to auscultation. No rales or rhonchi. HEART: S1, S2 normal. No S3. No murmur, gallop or regurgitation. ABDOMEN: Soft, nontender. Bowel sounds active. No rigidity. No rebound or guarding. No CVA tenderness. Epigastric tenderness is present. EXTREMITIES: No cyanosis, clubbing or pedal edema. MUSCULOSKELETAL: No joint swelling. NEUROLOGIC: Awake, alert, oriented times three. No focal deficit. LYMPHATIC: No lymph nodes palpable. SKIN: Intact. LABS: WBC 7.14, hgb 12.2, hct 37.1, plt count 201, sodium 136, potassium 4.0, chloride 109, bicarb 19, BUN 9, creatinine 0.81, glucose 86. ASSESSMENT: 1. Acute gastritis 2. Slightly elevated amylase 3. Meth positive in the system but the patient refuses using Meth 4. Cholecystectomy 5. Depression 6. Anxiety PLAN: 1. Clear liquid diet 2. GI cocktail 3. Klonopin 4. IV fluids 5. Carafate 6. Protonix. TIME SPENT: More than 35 minutes MTDD
--- NOTE | 2017-09-29 15:51 | US ---
EXAM: Pelvic ultrasound HISTORY: Adnexa/ovarian cyst found by CT COMPARISON: CT 09/27/2017 TECHNIQUE: Transvaginal pelvic ultrasound was performed FINDINGS: Uterus measures 4.0 x 4.4 x 11.3 cm. Uterus retroverted. Heterogeneous region in the pos terior uterus, probably relates to technical artifact or less likely small fibroid, measuring 1.8 x 1 .8 x 1.9 cm. Endometrium normal in thickness measuring 0.6 cm. Right ovary measures 1.9 x 1.8 x 3.6 cm. Left ovary measures 2.8 x 2.4 x 3.7 cm. Ovaries normal in echogenicity. Normal arterial and v enous Doppler flow in the right and left ovary. There is a simple anechoic cyst or follicle in the l eft ovary measuring 2.4 x 2.4 x 2.9 cm. Small free fluid in the cul-de-sac. IMPRESSION: 1. 2.9 cm simple left ovarian cyst or follicle, a normal finding in a patient of this age. 2. Mild heterogeneity posterior is likely technical artifact versus less likely small fibroid. 3. Small free fluid in the cul-de-sac, nonspecific and may be physiologic.
[2017-09-29] MEDS: ROBAXIN PO SCH (20:49)
[2017-09-30] MEDS: ZOFRAN 4 MG/2 ML IVP PRN ×2 (03:02→16:48)
[2017-09-30] MEDS: COLESTID PO SCH (05:40)
[2017-09-30] MEDS: CARAFATE PO SCH ×3 (05:40→17:11)
[2017-09-30] MEDS: PROTONIX IV IVP SCH (08:36)
[2017-09-30] MEDS: PROZAC PO SCH (08:37)
[2017-09-30] MEDS: NEURONTIN PO SCH ×2 (08:37→17:11)
[2017-09-30] MEDS: KLONOPIN PO SCH ×2 (08:37→17:11)
[2017-09-30 13:52] VITALS: BP 107/66; TEMP 98
--- NOTE | 2017-10-03 06:54 | DS ---
DATE OF SERVICE: 09/30/17 FINAL DIAGNOSIS: 1. ACUTE GASTROENTERITIS/INTRACTABLE NAUSEA AND VOMITING 2. GERD 3. HIATAL HERNIA 4. OSTEOARTHRITIS 5. ANEMIA 6. DEPRESSION/ANXIETY 7. TUBAL LIGATION 8. CHOLECYSTECTOMY 9. TONSILLECTOMY 10. APPENDECTOMY 11. FORMER TOBACCO USE 12. POSITIVE FOR METHAMPHETAMINE (PATIENT REFUSES TAKING) DISCHARGE INSTRUCTIONS: Followup appointment with Dr. Mccallum in the [facility] on 10/05/17 at 2 p.m. MEDICATIONS AT DISCHARGE: Continue Zantac and Carafate Klonopin Prozac Neurontin [place] Zofran p.r.n. NEW PRESCRIPTIONS: Colestid 1 gm take one tablet by mouth daily before breakfast DIET INSTRUCTIONS: Soft diet for 2 to 3 weeks. Advance as tolerated. Avoid dairy products until recovered. ACTIVITY: Get plenty of rest at home. DISEASE SPECIFIC EDUCATION: Intractable nausea, vomiting, dehydration discussed. Peptic ulcer disease discussed. HOSPITAL COURSE: This is a 36-year-old female who came to the office with intractable nausea, vomiting, unable to keep anything down. Food material vomited as well as water, non bloody, non bilious. She came to the office, admitted directly from the office. She was started on IV fluids and Zofran. GI cocktail, Protonix and Carafate was given. Slowly she was feeling better. The patient was kept NPO. By the next day we started clear liquids. Urine drug screen was done which showed amphetamine/methamphetamine positive. The patient refuses taking meth - says that someone gave this to her saying it was cannabis so she was not aware of that. The patient was slightly upset about that. CT scan shows pelvic mass. The patient's mother was worried about the pelvic mass so we did pelvic ultrasound which showed ovarian cyst, no other lesions. Gradually, the patient started feeling better, was able to tolerate clear liquids and soft food. Clearly explained about not using drugs and adhering with soft diet and bland diet for at least 2 to 3 months. The patient did have endoscopy done in January 2017 so we will not schedule one at this time. TIME SPENT: MORE THAN 65 MINUTES MTDD
== END 2017-09-30 17:24 | disposition home or self-care (01) ==
LOC: MEDSURG B 17:17
PROVIDERS: ADMIT Emergency Medicine; ATTEND Emergency Medicine
DX: K52.9 Noninfective gastroenteritis and colitis, unspecified (principal); K21.9 Gastro-esophageal reflux disease without esophagitis; K44.9 Diaphragmatic hernia without obstruction or gangrene; E86.0 Dehydration; D50.8 Other iron deficiency anemias; F15.10 Other stimulant abuse, uncomplicated; R74.8 Abnormal levels of other serum enzymes; F32.9 Major depressive disorder, single episode, unspecified; F41.9 Anxiety disorder, unspecified; M19.90 Unspecified osteoarthritis, unspecified site; M47.26 Other spondylosis with radiculopathy, lumbar region; N83.202 Unspecified ovarian cyst, left side; E66.9 Obesity, unspecified; Z87.891 Personal history of nicotine dependence
CPT/HCPCS: 36415; 80053; 80306; 81001; 81025; 82150; 83690; 85025

== ENCOUNTER 2017-11-26 08:05 | Inpatient (IN) ==
[2017-11-26 08:13] VITALS: BMI 28.8
[2017-11-26] MEDS ORDERED: ZOFRAN 4 MG/2 ML IVP STA (08:34)
[2017-11-26] MEDS ORDERED: SODIUM CHLORIDE 1,000 ML IV STA (08:34)
[2017-11-26] MEDS ORDERED: TORADOL IVP STA (08:44)
--- NOTE | 2017-11-26 08:49 | ED.PDOC ---
General ED Provider: Dr. CHARLENE MCNULTY Chief Complaint: Abdominal Pain Stated Complaint: Nausea, vomiting and abdominal cramping. 37 y/o Time Seen by Physician: 08:35 Mode of Arrival: Walk-In Information Source: Patient, Family Exam Limitations: No limitations Primary Care Provider: BRO MCCALLUM[facility] Nursing and Triage Documentation Reviewed and Agree: Yes Does patient meet sepsis criteria?: No System Inflammatory Response Syndrome: Not Applicable Sepsis Protocol: For patient's 13 years and over: Temp is 96.8 and below OR 101 and greater Pulse >90 BPM Resp >20/minute Acutely Altered Mental Status Are patient's symptoms suggestive of a new infection, such as: -Pneumonia -Skin, Soft Tissue -Endocarditis -UTI -Bone, Joint Infection -Implantable Device -Acute Abdominal Infection -Wound Infection -Meningitis -Blood Stream Catheter Infection -Unknown GI Complaint Exam - Vomiting/Diarrhea Complaint/Exam Onset/Duration: Late yesterday Symptoms Are: Worse Episodes of Vomiting over last 24 Hours: 5 Initial Severity: Severe Character of Vomiting: Reports: Bilious, Retching Character of Diarrhea: Denies: Bloody, Watery, Mucoid, Malodorous (Mostly constipated followed by BM then diarrhea) Aggravating: Reports: None Alleviating: Reports: None Associated Signs and Symptoms: Reports: Dizziness, Light-headedness, Cramping Related History: Reports: Similar episode (Seems to occur when on menses) Related Surgical History: Reports: Cholecystectomy Abdominal Findings: Present: CVA Tenderness. Absent: Rebound tenderness, Peritoneal signs, McBurney's Point tender Rectal Exam: Present: Normal Findings. Absent: Internal hemorrhoids, External hemorrhoids, Melena, Tenderness, Mass Kussmaul Respirations Present: No Differential Diagnoses: Bowel Obstruction, Dehydration, Viral Gastroenteritis, Hepatitis, UTI Review of Systems - Review Of Systems Constitutional: Reports: No symptoms Eyes: Reports: No symptoms Ears, Nose, Mouth, Throat: Reports: No symptoms Respiratory: Reports: No symptoms Cardiac: Reports: No symptoms GI: Reports: No symptoms, Abdominal pain, Nausea, Poor appetite, Poor fluid intake, Vomiting : Reports: No symptoms Musculoskeletal: Reports: No symptoms Skin: Reports: No symptoms Neurological: Reports: No symptoms Endocrine: Reports: No symptoms Hematologic/Lymphatic: Reports: No symptoms All Other Systems: Reviewed and Negative Past Medical History - Past Medical History Previously Healthy: Yes Endocrine: Reports: None Cardiovascular: Reports: None Respiratory: Reports: None Hematological: Reports: None Gastrointestinal: Reports: GERD Genitourinary: Reports: None Neuro/Psych: Reports: Anxiety, Depression, Other (OCD) Musculoskeletal: Reports: None Cancer: Reports: None Last Menstrual Period: now - Surgical History General Surgical History: Reports: Tubal ligation, Cholecystectomy - Family History Family History: Reports: Unknown - Social History Smoking Status: Former smoker Hx Substance Use: No Alcohol Screening: None Physical Exam - Physical Exam Appearance: Ill-appearing Ill-appearing: Moderate Pain Distress: Moderate Eyes: ELÍAS, EOMI, Conjunctiva clear ENT: Ears normal, Nose normal, Oropharynx normal Neck: Supple Respiratory: Airway patent, Breath sounds clear, Breath sounds equal, Respirations nonlabored Cardiovascular: RRR, Pulses normal, No rub, No murmur GI/: Soft Musculoskeletal: Normal strength, ROM intact, No edema, No calf tenderness Skin: Warm, Dry, Normal color Neurological: Sensation intact, Motor intact, Reflexes intact, Cranial nerves intact, Alert, Oriented Psychiatric: Affect appropriate, Mood appropriate Interpretation - Radiology Interpretation Radiology Interpretation By: Radiologist Exam Interpreted: CT Scan (localized colonic thickening) Re-Evaluation - Re-Evaluation Time of Re-Evaluation: 13:45 Status: Improved Vital Signs Stable: Yes Appearance: NAD Lungs: Clear Skin: Warm and Dry Neuro: Alert and Oriented X3 CV: RRR Critical Care Note - Critical Care Note Total Time (mins): 0 Course - Course Hematology/Chemistry: 11/26/17 08:50 11/26/17 08:50 Orders, Labs, Meds: Lab Review 11/26/17 11/26/17 11/26/17 08:50 08:50 08:50 WBC 9.58 RBC 4.95 Hgb 14.2 Hct 41.0 MCV 82.8 MCH 28.7 MCHC 34.6 RDW Coeff of Yesi 13.1 Plt Count 331 Immature Gran % (Auto) 0.3 Neut % (Auto) 68.8 Lymph % (Auto) 24.2 [place] % (Auto) 5.3 Eos % (Auto) 0.6 Baso % (Auto) 0.8 Immature Gran # (Auto) 0.0 Neut # (Auto) 6.6 Lymph # (Auto) 2.3 [place] # (Auto) 0.5 Eos # (Auto) 0.1 Baso # (Auto) 0.1 ESR 5 Sodium 140 Potassium 3.1 L Chloride 108 H Carbon Dioxide 19 L Anion Gap 16.1 BUN 12 Creatinine 0.98 Estimated GFR (MDRD) 64.00 BUN/Creatinine Ratio 12.24 Glucose 131 H Lactic Acid 38.1 H Calcium 9.8 Magnesium 2.1 Total Bilirubin 0.8 AST 16 ALT 14 Alkaline Phosphatase 38 L Total Protein 7.7 Albumin 4.3 Globulin 3.4 Albumin/Globulin Ratio 1.26 Amylase 164 H Lipase 15 Procalcitonin Serum , Qual Urine Color Urine Clarity Urine pH Ur Specific [place] Urine Protein Urine Glucose (UA) Urine Ketones Urine Blood Urine Nitrite Urine Bilirubin Urine Urobilinogen Ur Leukocyte Esterase Urine Microscopic RBC Ur Squamous Epith Cells Urine Opiates Screen Ur Oxycodone Screen Urine Methadone Screen Ur Propoxyphene Screen Ur Barbiturates Screen U Tricyclic Antidepress Ur Phencyclidine Scrn Ur Amphetamine Screen U Methamphetamines Scrn U Benzodiazepines Scrn Urine Cocaine Screen U Cannabinoids Screen 11/26/17 11/26/17 11/26/17 08:50 09:30 10:30 WBC RBC Hgb Hct MCV MCH MCHC RDW Coeff of Yesi Plt Count Immature Gran % (Auto) Neut % (Auto) Lymph % (Auto) [place] % (Auto) Eos % (Auto) Baso % (Auto) Immature Gran # (Auto) Neut # (Auto) Lymph # (Auto) [place] # (Auto) Eos # (Auto) Baso # (Auto) ESR Sodium Potassium Chloride Carbon Dioxide Anion Gap BUN Creatinine Estimated GFR (MDRD) BUN/Creatinine Ratio Glucose Lactic Acid Calcium Magnesium Total Bilirubin AST ALT Alkaline Phosphatase Total Protein Albumin Globulin Albumin/Globulin Ratio Amylase Lipase Procalcitonin < 0.05 Serum , Qual Negative Urine Color Urine Clarity Urine pH Ur Specific [place]cd[place] Urine Protein Urine Glucose (UA) Urine Ketones Urine Blood Urine Nitrite Urine Bilirubin Urine Urobilinogen Ur Leukocyte Esterase Urine Microscopic RBC Ur Squamous Epith Cells Urine Opiates Screen Negative Ur Oxycodone Screen Negative Urine Methadone Screen Positive Ur Propoxyphene Screen Negative Ur Barbiturates Screen Negative U Tricyclic Antidepress Negative Ur Phencyclidine Scrn Negative Ur Amphetamine Screen Negative U Methamphetamines Scrn Negative U Benzodiazepines Scrn Positive Urine Cocaine Screen Negative U Cannabinoids Screen Positive 11/26/17 10:30 WBC RBC Hgb Hct MCV MCH MCHC RDW Coeff of Yesi Plt Count Immature Gran % (Auto) Neut % (Auto) Lymph % (Auto) [place] % (Auto) Eos % (Auto) Baso % (Auto) Immature Gran # (Auto) Neut # (Auto) Lymph # (Auto) [place] # (Auto) Eos # (Auto) Baso # (Auto) ESR Sodium Potassium Chloride Carbon Dioxide Anion Gap BUN Creatinine Estimated GFR (MDRD) BUN/Creatinine Ratio Glucose Lactic Acid Calcium Magnesium Total Bilirubin AST ALT Alkaline Phosphatase Total Protein Albumin Globulin Albumin/Globulin Ratio Amylase Lipase Procalcitonin Serum , Qual Urine Color Yellow Urine Clarity Clear Urine pH 8.5 Ur Specific Mcd[place]al 1.010 Urine Protein 1+ Urine Glucose (UA) Negative Urine Ketones 2+ Urine Blood 2+ Urine Nitrite Negative Urine Bilirubin Negative Urine Urobilinogen 0.2 Ur Leukocyte Esterase Negative Urine Microscopic RBC 5-10 Ur Squamous Epith Cells Not present Urine Opiates Screen Ur Oxycodone Screen Urine Methadone Screen Ur Propoxyphene Screen Ur Barbiturates Screen U Tricyclic Antidepress Ur Phencyclidine Scrn Ur Amphetamine Screen U Methamphetamines Scrn U Benzodiazepines Scrn Urine Cocaine Screen U Cannabinoids Screen Orders Category Date Time Status ACTIVITY .BR with BRP CARE 11/26/17 11:28 Ordered INTAKE & OUTPUT Q8HR CARE 11/26/17 11:26 Ordered NPO REMINDER: IMAGING ONCE CARE 11/26/17 08:48 Completed VITAL SIGNS Q4HR CARE 11/26/17 11:28 Ordered NOTHING BY MOUTH DIETARY 11/26/17 Lunch Ordered AMYLASE Stat LAB 11/26/17 08:50 Completed BLOOD CULTURE (ED ONLY) Stat LAB 11/26/17 08:50 Received CBC W/ AUTO DIFF Stat LAB 11/26/17 08:50 Completed CMP [COMPREHENSIVE METABOLIC PANEL] Stat LAB 11/26/17 08:50 Completed ESR Stat LAB 11/26/17 08:50 Completed HCG QUALITATIVE [SERUM ] Stat LAB 11/26/17 09:30 Completed HEMOCCULT [OCCULT BLOOD, STOOL] Stat LAB 11/26/17 11:24 Ordered LACTIC ACID Stat LAB 11/26/17 08:50 Completed LIPASE Stat LAB 11/26/17 08:50 Completed MAGNESIUM Stat LAB 11/26/17 08:50 Completed PROCALCITONIN Stat LAB 11/26/17 08:50 Completed UA [URINALYSIS C & S IF INDICATED] Stat LAB 11/26/17 10:30 Completed URINE DRUG SCREEN (RAPID FOR ED) [DRUG SCREEN, URINE, LAB 11/26/17 10:30 Completed RAPID] Stat 0.9 % Sodium Chloride [Saline Flush] MEDS 11/26/17 08:34 Active 1 syr IVF PRN PRN Famotidine Inj [Pepcid] MEDS 11/26/17 10:44 Discontinued 20 mg IVP ONCE STA Ketorolac Tromethamine [Toradol] MEDS 11/26/17 08:44 Discontinued 30 mg IVP ONCE STA Ondansetron HCl/Pf [Zofran 4 mg/2 ml] MEDS 11/26/17 08:34 Discontinued 4 mg IVP ONCE STA Potassium Chloride in 0.9%NaCl [Sodium Chloride 0.9%- MEDS 11/26/17 11:18 Active KCl 20 Meq] 1,000 ml IV 125 mls/hr Potassium Chloride in 0.9%NaCl [Sodium Chloride 0.9%- MEDS 11/26/17 11:30 Ordered KCl 20 Meq] 1,000 ml IV 125 mls/hr Promethazine HCl [Phenergan 25 mg/ml Vial] MEDS 11/26/17 10:49 Discontinued 25 mg .ROUTE .STK-MED ONE Promethazine HCl [Phenergan 25 mg/ml Vial] 25 mg MEDS 11/26/17 10:44 Discontinued 0.9 % Sodium Chloride [Sodium Chloride] 50 ml IV ONCE Sodium Chloride 0.9% [Sodium Chloride] 1,000 ml MEDS 11/26/17 08:34 Discontinued IV BOLUS RESUSCITATION STATUS Routine OTHERS 11/26/17 11:26 Ordered CHEST, 1V AP ONLY Stat RADS 11/26/17 08:[address] ABDOMEN/PELVIS W/WO CONTRAS Stat RADS 11/26/17 08:47 Completed Medications Generic Name Dose Route Start Last Admin Trade Name Freq PRN Reason Stop Dose Admin Potassium Chloride/Sodium Chloride 1,000 mls @ 125 mls/hr 11/26/17 11:18 10:40 Sodium Chloride 0.9%-Kcl 20 Meq IV 11/26/17 19:17 125 mls/hr .Q8H STA Administration Potassium Chloride/Sodium Chloride 1,000 mls @ 125 mls/hr 11/26/17 11:30 Sodium Chloride 0.9%-Kcl 20 Meq IV .Q8H TERRY Sodium Chloride 1 syr 11/26/17 08:34 11/26/17 09:08 Saline Flush IVF 1 syr PRN PRN Administration To flush IV Discontinued Medications Generic Name Dose Route Start Last Admin Trade Name Vinay PRN Reason Stop Dose Admin Famotidine 20 mg 11/26/17 10:44 11/26/17 11:04 Pepcid IVP 11/26/17 10:45 20 mg ONCE STA Administration Sodium Chloride 1,000 mls @ 1,000 mls/hr 11/26/17 08:34 11/26/17 09:08 Sodium Chloride IV 11/26/17 09:33 1,000 mls/hr BOLUS STA Administration Promethazine HCl 25 mg/ Sodium 51 mls @ 75 mls/hr 11/26/17 10:44 11/26/17 11: 05 Chloride IV 11/26/17 11:24 75 mls/hr ONCE STA Administration Ketorolac Tromethamine 30 mg 11/26/17 08:44 11/26/17 09:11 Toradol IVP 11/26/17 08:45 30 mg ONCE STA Administration Ondansetron HCl 4 mg 11/26/17 08:34 11/26/17 09:10 Zofran 4 Mg/2 Ml IVP 11/26/17 08:35 4 mg ONCE STA Administration Vital Signs: Temp Pulse Resp BP Pulse Ox 11/26/17 08:06 96.9 F L 99 H 20 134/90 98 Departure - Departure Time of Disposition: 11:25 Disposition: ADMITTED INPATIENT Discharge Problem: Acute gastroenteritis, Uncontrollable nausea and vomiting, Colitis Condition: Fair Pt referred to PMD for follow-up: Yes (Dr Mccallum admitting patient) IPMP verified?: No Additional Instructions: Needs IV Fluids Needs referral for Colonoscopy to further evaluate suspected colon inflamation per CT scan Discussed with Dr Mccallum=agrees to admit Allergies/Adverse Reactions: Allergies No Known Allergies Allergy (Verified 11/26/17 08:12) Home Medications: Ambulatory Orders Clonazepam [Klonopin] 1 mg PO TID 07/12/13 Fluoxetine HCl [Prozac] 40 mg PO DAILY 07/12/13 Ranitidine HCl [Zantac] 150 mg PO BIDAC #30 tablet 08/16/17 Sucralfate [Carafate] 1 gm PO ACHS #120 tablet 08/16/17 Medicinal Marijuana 11/26/17 Disposition Discussed With: Patient, Family (Dr Mccallum)
--- NOTE | 2017-11-26 10:29 | CT ---
Exam: CT of the abdomen and pelvis without and with contrast History: Diffuse left lower quadrant pain Technique: [address] of the abdomen and pelvis pre and post intravenous contrast FINDINGS: The lung bases are clear. Prior cholecystectomy. No significant liver abnormality. The ad renals, pancreas and spleen are unremarkable. The stomach and hiatus are unremarkable.Kidneys and pro ximal collecting system are unremarkable. The appendix is not seen and there is evidence of prior nena endectomy. The colon is nondistended normal completely. Bowel loops demonstrate normal caliber. No i nflamatory change seen in the mesentery or retroperitoneum. Questionable colonic wall thickening with out surrounding inflammation. Pelvic genitourinary structures appear normal. There is a tampon in the vagina. Pelvic bowel loops a re unremarkable. No inflammatory change in the pelvic fat. No acute abnormality of the abdominal or p elvic skeleton. Impression: 1. No inflammatory process, bowel or urinary obstruction. 2. Questionable colonic wall thickening versus non distension pseudo thickening with the latter favo red.
[2017-11-26] MEDS ORDERED: PEPCID IVP STA (10:44)
[2017-11-26] MEDS ORDERED: PHENERGAN 25 MG/ML VIAL 25 MG in SODIUM CHLORIDE 50 ML IV STA (10:44)
[2017-11-26] MEDS ORDERED: PHENERGAN 25 MG/ML VIAL ONE (10:49)
[2017-11-26] MEDS ORDERED: SODIUM CHLORIDE 0.9%-KCL 20 MEQ 1,000 ML IV STA (11:18)
--- NOTE | 2017-11-26 13:09 | DI ---
EXAM: Single-view chest COMPARISON: None HISTORY: Abdominal pain FINDINGS: Lungs are clear with no lobar consolidation, failure, large effusion or significant atelec tasis. Cardiac and mediastinal silhouettes show no acute abnormality. There is no free air under the diaphragms. No acute soft tissue or osseous abnormalities. IMPRESSION: No active disease.
[2017-11-26] MEDS ORDERED: KLONOPIN ONE ×2 (14:39→21:40)
[2017-11-26] MEDS: PROTONIX ONE ×2 (14:41→14:50)
[2017-11-26] MEDS: ZOFRAN 4 MG/2 ML IVP PRN ×2 (14:41→20:58)
[2017-11-26] MEDS: NON-FORMULARY MEDICATION (Clonazepam [Klonopin] 1 MG) PO SCH ×2 (14:42→22:31)
[2017-11-26] MEDS: PROTONIX IV IVP SCH ×2 (14:50)
[2017-11-26] MEDS: SODIUM CHLORIDE 0.9%-KCL 20 MEQ 1,000 ML IV SCH ×2 (16:29→21:20)
[2017-11-26] MEDS: CARAFATE PO SCH ×2 (16:32→22:31)
[2017-11-26] MEDS: GI COCKTAIL PO PRN (19:44)
[2017-11-26] MEDS ORDERED: DILAUDID 2 MG/ML SDV ONE (20:54)
[2017-11-26] MEDS: DILAUDID 2 MG/ML SYRINGE IVP PRN (21:00)
[2017-11-27] MEDS: ZOFRAN 4 MG/2 ML IVP PRN ×4 (01:08→23:58)
[2017-11-27] MEDS: GI COCKTAIL PO PRN ×3 (01:47→20:39)
[2017-11-27] MEDS ORDERED: DILAUDID 2 MG/ML SDV ONE (03:43)
[2017-11-27] MEDS: DILAUDID 2 MG/ML SYRINGE IVP PRN (03:52)
[2017-11-27] MEDS: SODIUM CHLORIDE 0.9%-KCL 20 MEQ 1,000 ML IV SCH ×3 (05:34→23:33)
[2017-11-27] MEDS: CARAFATE PO SCH ×4 (05:58→20:39)
[2017-11-27] MEDS: PROTONIX IV IVP SCH (08:22)
[2017-11-27] MEDS: PROZAC PO SCH (08:22)
[2017-11-27] MEDS: KLONOPIN PO SCH ×3 (08:22→20:39)
[2017-11-27] MEDS ORDERED: NON-FORMULARY MEDICATION (Fluoxetine Hcl [Prozac] 40 MG) PO SCH (09:00)
[2017-11-27] MEDS: DILAUDID 2 MG/ML SDV IVP PRN ×2 (10:37→20:05)
--- NOTE | 2017-11-27 14:54 | HP ---
DATE OF SERVICE: 11/26/17 CHIEF COMPLAINT: Nausea, vomiting and abdominal pain. HISTORY OF PRESENT ILLNESS: The patient is a 37 year old female came to the emergency room with abdominal pain, brown and bright red blood clots, vomiting started at 1am in the morning. States feels like a hard mass in the rectum per patient. Lower abdominal cramping. Temperature was 96.9, blood pressure 134/90. The patient was seen and evaluated by Dr. Vega in the emergency room. WBC normal. Chemistry showed Potassium is 3.1. Lactic acid 38.1, amylase is 164, urine positive for ketones and occult blood test positive. Toxicology screen positive for the Methadone and Benzodiazepines. The patient was given a dose of Phenergan for the nausea. Toradol, Zofran and Phenergan was given and was not able to keep anything down and the patient was admitted to hospital because of the intractable nausea, vomiting, abdominal pain and the rectal bleeding. Chest x-ray and abdomen and pelvis showed no acute findings. REVIEW OF SYSTEMS: CONSTITUTIONAL: No fever, no chills. Weakness and tiredness. HEENT: Normal. ENDOCRINE: No weight gain; no weight loss. CVS: No chest pain. No PND, no orthopnea. No shortness of breath. No PND, no orthopnea. RESPIRATORY: No cough, no congestion. No hemoptysis. GI: Nausea,Vomiting. Abdominal pain. No melena. Rectal bleeding. : No hematuria. No polyuria. MUSCULOSKELETAL: No joint swelling. PSYCHIATRIC: Not anxious. No depression. No suicidal thoughts. No homicidal thoughts. SKIN: Intact, no open lesions. PAST MEDICAL HISTORY: Hiatal hernia Nausea Vomiting Osteoarthritis Depression Anxiety Substance use disorder PAST SURGICAL HISTORY: Cholecystectomy Appendectomy PERSONAL HISTORY: The patient does smoke and no alcohol and does the drug Methadone for the opioid dependency FAMILY HISTORY: Hypertension MEDICATIONS: Prozac Klonopin Zantac Carafate Colestipol ALLERGIES: No known allergies PHYSICAL EXAMINATION: V/S: Blood pressure 134/90, respiratory rate 20, heart rate 99, temperature 96.9 with saturation 98%. GENERAL: Sick looking lady lying in the bed. HEENT: Atraumatic, normocephalic. No scleral icterus. Pallor positive. Mucosa dry. NECK: Supple. No JVD, no bruit. No lymphadenopathy. No thyromegaly. HEART: S1, S2 normal. No murmur. No cyanosis or clubbing. No ascites. LUNGS: Clear to auscultation. No rales or rhonchi. ABDOMEN: Soft, Suprapubic tenderness. Bowel sounds are active. No CVA tenderness. No rigidity or guarding. EXTREMITIES: No pedal edema. No cyanosis or clubbing MUSCULOSKELETAL: Normal joints, no swelling. NEUROLOGIC: The patient is awake and alert. SKIN: Intact; no open lesions. LYMPHATIC: No lymph nodes palpable. LABS: WBC 9.58, hgb 14.2, hct 41.0, plt count 331, sodium 140, potassium 3.1, chloride 108, bicarb 19, BUN 12, creatinine 0.98 and glucose 131. Lactic acid 38.1. ASSESSMENT: 1. Intractable abdominal pain 2. Nausea 3. Vomiting 4. Hypokalemia 5. Osteoarthritis 6. DJD spine PLAN: 1. Admit the patient to the observation 2. IV fluids 3. Dilaudid 1mg Q 4 hours 4. Zofran PRN 5. NPO 6. Clear liquid diet TIME SPENT: MORE THAN 65 minutes MTDD
[2017-11-27] MEDS ORDERED: PHENERGAN 25 MG/ML VIAL 12.5 MG in SODIUM CHLORIDE 50 ML IV STA (21:49)
[2017-11-27] MEDS ORDERED: PHENERGAN 25 MG/ML VIAL ONE (21:55)
[2017-11-28] MEDS: GI COCKTAIL PO PRN (02:45)
[2017-11-28] MEDS: ZOFRAN 4 MG/2 ML IVP PRN ×3 (04:22→17:31)
[2017-11-28] MEDS: CARAFATE PO SCH ×4 (06:10→21:51)
[2017-11-28] MEDS: KLONOPIN PO SCH ×3 (08:14→21:51)
[2017-11-28] MEDS: PROTONIX IV IVP SCH (08:14)
[2017-11-28] MEDS: PROZAC PO SCH (08:14)
[2017-11-28] MEDS: SODIUM CHLORIDE 0.9%-KCL 20 MEQ 1,000 ML IV SCH ×2 (10:23→18:49)
[2017-11-28] MEDS: DILAUDID 2 MG/ML SDV IVP PRN ×2 (10:38→17:33)
[2017-11-28] MEDS ORDERED: PHENERGAN 25 MG/ML VIAL 12.5 MG in SODIUM CHLORIDE 50 ML IV STA (10:52)
[2017-11-28] MEDS ORDERED: PHENERGAN 25 MG/ML VIAL ONE (11:17)
--- NOTE | 2017-11-28 12:33 | PN ---
DATE OF SERVICE: 11/27/17 SUBJECTIVE: The patient was admitted from the emergency room yesterday for intractable nausea and vomiting. The patient is somewhat better. Lower abdominal pain is improved. Potassium is lower today. REVIEW OF SYSTEMS: CONSTITUTIONAL: No fever, no chills. HEENT: Normal. ENDOCRINE: No weight gain, no weight loss. CVS: No angina symptoms. No CHF symptoms. No palpitations. No atypical chest pain for CAD. No shortness of breath. No PND, no orthopnea. RESPIRATORY: No cough, no hemoptysis. GI: No nausea, no vomiting. No abdominal pain. : No hematuria. No polyuria. MUSCULOSKELETAL: No joint swelling. PSYCHIATRIC: Not anxious. No depression. No suicidal thoughts. No homicidal thoughts. SKIN: Intact. No rash. PHYSICAL EXAMINATION: V/S: BP 137/84, respiratory rate 22, heart rate 69, temperature 98.6, saturation 100% HEENT: Normocephalic, atraumatic. Mucosa dry. Pallor positive. No icterus. NECK: Supple. No JVD, no carotid bruit. No lymphadenopathy. LUNGS: Clear to auscultation. No rales or rhonchi. HEART: S1, S2 normal. No S3. No murmur, gallop or regurgitation. ABDOMEN: Soft, nontender. Bowel sounds active. No rigidity. No rebound or guarding. No CVA tenderness. EXTREMITIES: No cyanosis, clubbing or pedal edema. MUSCULOSKELETAL: No joint swelling. NEUROLOGIC: Awake, alert. No focal deficit. LYMPHATIC: No lymph nodes palpable. SKIN: Intact. LABS: White count 9.5, hemoglobin 15.2, hematocrit 41.0, platelet count 331. Sodium 140, potassium 3.1, chloride 109, bicarb 19, BUN 12, creatinine 0.98, glucose 131. ASSESSMENT: 1. INTRACTABLE NAUSEA AND VOMITING 2. PEPTIC ULCER DISEASE 3. RECTAL BLEEDING WITH POSITIVE OCCULT BLOOD TEST 4. TOXICOLOGY POSITIVE FOR METHADONE PLAN: 1. Continue Klonopin 2. Pepcid 3. Dilaudid p.r.n. 4. GI cocktail 5. Zofran 6. Daily I & O's 7. NPO TIME SPENT: More than 35 minutes MTDD
[2017-11-29] MEDS: ZOFRAN 4 MG/2 ML IVP PRN ×3 (01:08→14:40)
[2017-11-29] MEDS: DILAUDID 2 MG/ML SDV IVP PRN ×2 (01:09→07:37)
[2017-11-29] MEDS: SODIUM CHLORIDE 0.9%-KCL 20 MEQ 1,000 ML IV SCH ×2 (03:00→12:34)
[2017-11-29] MEDS: CARAFATE PO SCH ×3 (06:02→16:49)
[2017-11-29] MEDS: PROZAC PO SCH (08:00)
[2017-11-29] MEDS: PROTONIX IV IVP SCH (08:00)
[2017-11-29] MEDS: KLONOPIN PO SCH ×2 (08:00→14:42)
[2017-11-29] MEDS ORDERED: SODIUM CHLORIDE 0.9%-KCL 20 MEQ 1,000 ML IV SCH (09:00)
--- NOTE | 2017-11-29 10:27 | PN ---
DATE OF SERVICE: 11/28/17 SUBJECTIVE: The patient was admitted with acute abdominal pain, severe nausea and vomiting. Not able to keep anything down. Hypokalemia which is been better. The patient is holding the bucket and vomiting into she says that she is nauseous. She did have Zofran one hour ago but doesn't feel good. REVIEW OF SYSTEMS: CONSTITUTIONAL: No fever, no chills. HEENT: Normal. ENDOCRINE: No weight gain, no weight loss. CVS: No angina symptoms. No CHF symptoms. No palpitations. No atypical chest pain for CAD. No shortness of breath. No PND, no orthopnea. RESPIRATORY: No cough, no hemoptysis. GI: No nausea, no vomiting. No abdominal pain. : No hematuria. No polyuria. MUSCULOSKELETAL: No joint swelling. PSYCHIATRIC: Not anxious. No depression. No suicidal thoughts. No homicidal thoughts. SKIN: Intact. No rash. PHYSICAL EXAMINATION: V/S: Blood pressure 107/63, respiratory rate 20, heart rate 60, temperature 98.2 with saturation 99%. HEENT: Normocephalic, atraumatic. Mucosa dry. Pallor positive. No icterus. NECK: Supple. No JVD, no carotid bruit. No lymphadenopathy. LUNGS: Clear to auscultation. No rales or rhonchi. HEART: S1, S2 normal. No S3. No murmur, gallop or regurgitation. ABDOMEN: Soft, tender all over more suprapubic area. Bowel sounds active. No rigidity. No rebound or guarding. No CVA tenderness. EXTREMITIES: No cyanosis, clubbing or pedal edema. MUSCULOSKELETAL: No joint swelling. NEUROLOGIC: Awake, alert. No focal deficit. LYMPHATIC: No lymph nodes palpable. SKIN: Intact. LABS: Sodium 135, potassium 3.6, chloride 107, bicarb 21, BUN 7, creatinine 0.70 and glucose 98, WBC 9.12, hgb 11.7, hct 34.5, plt count 192. ASSESSMENT: 1. Intractable nausea and vomiting 2. Acute gastritis 3. Polysubstance use; Methadone and Benzodiazepine 4. Occult blood test is positive PLAN: 1. Continue the IV fluids 2. Phenergan PRN 3. Demerol 4. Soft diet TIME SPENT: More than 35 minutes MTDD
--- NOTE | 2017-11-29 11:18 | CT ---
EXAM: CT of the abdomen pelvis without contrast History: Left lower quadrant abdominal pain, history of appendectomy and cholecystectomy. Comparison: CT abdomen pelvis 11/26/2017 Technique: Multiplanar CT images through the abdomen pelvis were obtained without the administration of IV contrast Findings: Lung bases are free of consolidation. No acute osseous abnormalities. Moderate degenerativ e disc disease at L5-S1. Status post cholecystectomy. No focal liver or splenic lesions. Spleen is upper limits of normal in length measuring 12.6 cm. No renal stones and no hydronephrosis. Previous appendectomy. No peripa ncreatic inflammation. Adrenal glands are unremarkable. No bladder wall thickening. Adnexal struct ures appear appropriate for patient's age but are not well evaluated without IV contrast. There is m ild wall thickening involving the left side of the colon but is improved compared to the prior study. No free air and no ascites. No inflammatory stranding. No bowel obstruction. Impression: Mild left-sided colitis which has improved compared to the prior study.
[2017-11-29] MEDS: GI COCKTAIL PO PRN (12:27)
[2017-11-29] MEDS ORDERED: FLAGYL PO SCH (15:00)
--- NOTE | 2017-11-29 17:38 | PCM.HOSP ---
- Observation Care Discharge [id number] OBS Care Discharge (12044): 11/29 - Initial Observation Care [id number] High Complexity 70 Minutes (25930): 11/26 - Subsequent Observation Care [id number] 35 Minutes per Day (47586): 11/27. 11/28
[2017-11-29 18:19] VITALS: BP 122/73; TEMP 98.4
--- NOTE | 2017-11-30 14:13 | PN ---
DATE OF SERVICE: 11/29/17 SUBJECTIVE: The patient was admitted with severe abdominal pain, colitis like symptoms and intractable nausea and vomiting. Complains about the more abdominal pain today. REVIEW OF SYSTEMS: CONSTITUTIONAL: No fever, no chills. HEENT: Normal. ENDOCRINE: No weight gain, no weight loss. CVS: No angina symptoms. No CHF symptoms. No palpitations. No atypical chest pain for CAD. No shortness of breath. No PND, no orthopnea. RESPIRATORY: No cough, no hemoptysis. GI: No nausea, no vomiting. Abdominal pain. : No hematuria. No polyuria. MUSCULOSKELETAL: No joint swelling. PSYCHIATRIC: Not anxious. No depression. No suicidal thoughts. No homicidal thoughts. SKIN: Intact. No rash. PHYSICAL EXAMINATION: V/S: Blood pressure 108/68, respiratory rate 20, heart rate 69, temperature 98.4 with saturation 99. HEENT: Normocephalic, atraumatic. Mucosa dry. Pallor positive. No icterus. NECK: Supple. No JVD, no carotid bruit. No lymphadenopathy. LUNGS: Clear to auscultation. No rales or rhonchi. HEART: S1, S2 normal. No S3. No murmur, gallop or regurgitation. ABDOMEN: Soft, Left lower quadrant tenderness is present. Bowel sounds active. No rigidity. No rebound or guarding. No CVA tenderness. EXTREMITIES: No cyanosis, clubbing or pedal edema. MUSCULOSKELETAL: No joint swelling. NEUROLOGIC: Awake, alert. No focal deficit. LYMPHATIC: No lymph nodes palpable. SKIN: Intact. LABS: WBC 9.12, hgb 11.7, hct 34.5, plt count 192, sodium 135, potassium 3.6, chloride 107, bicarb 21, BUN 7, creatinine 0.70 and glucose 98. ASSESSMENT: 1. Acute sigmoid colitis 2. Intractable nausea and vomiting 3. Hypokalemia 4. Stool for occult blood test positive 5. Anemia 6. Polysubstance use PLAN: 1. Flagyl 500mg Q [address] abdomen and pelvis 3. IV fluids 4. Zofran PRN TIME SPENT: More than 35 minutes MTDD
--- NOTE | 2017-11-30 14:27 | DS ---
DATE OF SERVICE: 11/29/17 FINAL DIAGNOSIS: 1. Colitis, non C-Diff related 2. Dehydration 3. Hypokalemia 4. Intractable nausea and vomiting 5. GERD 6. Hiatal hernia 7. Osteoarthritis 8. Anemia 9. Depression 10.Anxiety 11.Chronic pain syndrome 12.Cholecystectomy 13.Appendectomy DISCHARGE INSTRUCTIONS: Discharge the patient home. Followup in the [facility] within 5 days. The patient did say that patient has a followup with Dr. Tucker in the morning and the patient's mother works in Dr. Tucker's office and he agreed to see her in the morning. Continue the home medications at this time. MEDICATIONS AT DISCHARGE: Colestipol Klonopin Medical marijuana Zantac Carafate NEW PRESCRIPTIONS: Flagyl 500mg PO Q 8 hours Zofran 4mg PO three times a day PRN DIET INSTRUCTIONS: Soft ACTIVITY: Resume gradually as tolerated DISEASE SPECIFIC EDUCATION: Colitis Infectious colitis been discussed Dehydration Nausea and vomiting been discussed and verbalized understanding. HOSPITAL COURSE: Stephanie Orta came to the emergency room with intractable nausea, vomiting and not able to keep anything down and the rectal bleeding. CT abdomen and pelvis did show the colitis with no recent history of antibiotics. The patient was given IV fluids and Demerol and Dilaudid for the pain and Toradol for the pain. With the given treatment gradually started feeling better with the Zofran and Phenergan. Flagyl was started which did help the patient to calm the belly down. The patient more symptom was nausea with intractable pain was present and she was kept vomiting and not able to keep anything down. Initial CAT scan did not show any colitis but showed questionable chronic wall thickening. The patient did not receive any recent IV antibiotic or PO antibiotics. Last time she was in the hospital was in September 26 for the the same reason and she did not receive any antibiotics. The patient does use the medical marijuana. Hgb dropped from 14.2 to 11.7. Occult blood test was positive, no more blood after that. Toxicology was positive for the Methadone. As the patient was feeling better and today she did tell us that the pain medication was stopped today morning and today evening the patient called the nurse and told her that she wants to go home. Advised Dr. Tucker would be to see the patient. CAT scan did show the chronic colitis so the patient being started on the Flagyl today. Advised to take the Flagyl and complete the course. Advised to stick with the soft diet at this time. TIME SPENT: More than 65 minutes. YOCASTA
== END 2017-11-29 18:05 | disposition home or self-care (01) | DRG 392 ==
LOC: ED 08:05 → MEDSURG A 11:34
PROVIDERS: ADMIT Emergency Medicine; ATTEND Emergency Medicine
DX: R11.2 Nausea with vomiting, unspecified (principal); K62.5 Hemorrhage of anus and rectum; R42 Dizziness and giddiness; K52.9 Noninfective gastroenteritis and colitis, unspecified; K21.9 Gastro-esophageal reflux disease without esophagitis; K44.9 Diaphragmatic hernia without obstruction or gangrene; M19.90 Unspecified osteoarthritis, unspecified site; M47.9 Spondylosis, unspecified; E86.0 Dehydration; E87.6 Hypokalemia; D64.9 Anemia, unspecified; G89.4 Chronic pain syndrome; F19.90 Other psychoactive substance use, unspecified, uncomplicated
CPT/HCPCS: 36415; 80053; 80306; 81001; 82150; 82272; 83605; 83690; 83735; 84145; 84703; 85025; 85651; 87040; 96361; 96365; 96375; 99284

== ENCOUNTER 2017-12-05 09:50 | Day surgery (SDC) ==
[2017-12-05] MEDS ORDERED: LIDOCAINE 1% 20 ML MDV ID STA (10:41)
[2017-12-05 10:47] VITALS: TEMP 98.6
[2017-12-05] MEDS ORDERED: DIPRIVAN 20 ML VIAL IVP ONE (12:07)
[2017-12-05] MEDS ORDERED: VERSED ONE (12:07)
[2017-12-05] MEDS ORDERED: SUBLIMAZE ONE (12:07)
[2017-12-05] MEDS ORDERED: ZOFRAN 4 MG/2 ML IVP STA (12:36)
[2017-12-05 16:33] VITALS: BP 132/56
--- NOTE | 2017-12-06 10:47 | OP ---
INDICATIONS FOR PROCEDURE: 37-year-old female presents complaining of intermittent attacks of abdominal discomfort associated with nausea, vomiting and diarrhea. She also has had a little bright red blood per rectum. She is scheduled for colonoscopy. We have also scheduled her for upper endoscopy examination. MEDICATIONS: SEE ANESTHESIA NOTES. PROCEDURE: 1. ENDOSCOPY, SMALL BOWEL BIOPSIES, MAIRA BIOPSY 2. COLONOSCOPY. REPORT: The risks, benefits, alternatives and limitations were discussed in detail with the patient. Informed consent was obtained. After adequate sedation was achieved, the video endoscope was introduced in the posterior pharynx and esophagus under direct vision. I easily advanced this down to the second portion of the duodenum and beginning of third portion. The duodenal mucosa appeared unremarkable as did the duodenal bulb. I obtained multiple biopsies from the second portion of the duodenum for histologic review. Withdrawing the scope in the circumferential manner revealed no abnormalities in the duodenum. The antrum and body were relatively unremarkable. The scope was retroflexed to look at cardia and fundus which was unremarkable. Two biopsies from the antrum, one from the body obtained from H. Pylori testing. The scope was withdrawn back through the esophagus. This appeared unremarkable. The GE junction was at the top of the gastric folds at the diaphragmatic hiatus. The patient tolerated this procedure well with stable vital signs and pulse oximetry throughout. The patient's bed was turned. Digital rectal exam revealed good tone, no masses. The colonoscope was introduced into the rectum, was advanced under direct visual guidance to the cecum. The cecum was identified by the appendiceal orifice and IC valve. I was able to intubate the terminal ileum and examine distal 14 cm. The ileum appeared unremarkable. I then slowly withdrew the scope in a circumferential manner examining the mucosa quite carefully. I looked on the proximal and distal side of folds and flexures as best as possible. I was able to retroflex the scope in the right colon as well as left colon to increase visualization. The colonic mucosa was unremarkable its entire length including on retroflex view of the anal canal. The prep was good. The withdrawal time was 7 minutes and 40 seconds. The patient tolerated the procedure well with stable vital signs and pulse oximetry throughout. IMPRESSION: 1. NORMAL UPPER ENDOSCOPY EXAM 2. NORMAL COLONOSCOPY EXAM INCLUDING DISTAL TERMINAL ILEUM RECOMMENDATIONS: 1. High fiber diet. 2. I have suggested that she followup with her solid waste management engineer as her symptoms do seem to occur around her menstrual cycle. 3. Will see her back in the office as needed. 4. With family history of colon polyps involving her father at a young age and colon cancer in paternal grandparent at a young age, she may consider screening colon examination again in five years. CC: DR. REYNALDO RUST
== END 2017-12-05 13:10 | disposition home or self-care (01) ==
LOC: SURG 09:50
PROVIDERS: ATTEND Internal Medicine Gastroenterology
DX: R10.9 Unspecified abdominal pain (principal); R11.2 Nausea with vomiting, unspecified; K62.5 Hemorrhage of anus and rectum
CPT/HCPCS: 81025; 87339

== ENCOUNTER 2017-12-24 21:16 | Emergency (ER) ==
[2017-12-24 21:24] VITALS: BP 142/87; TEMP 97.6; BMI 24.3
[2017-12-24] MEDS ORDERED: SODIUM CHLORIDE 1,000 ML IV STA (21:26)
[2017-12-24] MEDS ORDERED: PHENERGAN 25 MG/ML VIAL 25 MG in SODIUM CHLORIDE 50 ML IV STA (21:26)
[2017-12-24] MEDS ORDERED: TORADOL IVP STA (21:26)
[2017-12-24] MEDS ORDERED: PHENERGAN 25 MG/ML VIAL ONE (21:50)
--- NOTE | 2017-12-24 22:39 | CT ---
EXAM: CT head without contrast 12/24/2017. Sagittal and coronal reformatted images obtained HISTORY: Pain COMPARISON: None. FINDINGS: There is no evidence of intracranial hemorrhage. The midline is maintained. There is no h ydrocephalus. No cerebellar tonsillar ectopia. Evaluation of the calvarium shows no fracture. Th e mastoid air cells are normally pneumatized. IMPRESSION: No acute intracranial abnormality.
--- NOTE | 2017-12-24 22:51 | CT ---
EXAM: CT abdomen pelvis without intravenous contrast 12/24/2017. Sagittal and coronal reformatted i mages obtained HISTORY: Abdominal pain COMPARISON: 11/29/2017 FINDINGS: The liver shows no acute abnormality. Gallbladder has been removed. The adrenal glands and kidneys show no acute abnormality. No hydronephrosis. The spleen and pancrea s show no acute process. There are innumerable air fluid levels throughout the small bowel. This could represent enteritis and /or ileus. No transition point identified to suggest obstruction. No evidence of appendicitis. Tampon is in place. No free air or free fluid. IMPRESSION: 1. Innumerable air fluid levels throughout small bowel. This could relate to enteritis and/or ileus . No transition point identified to suggest obstruction. 2. Status post cholecystectomy. 3. Tampon is in place. 4. Technically limited examination due to the lack of intravenous contrast.
--- NOTE | 2017-12-25 00:10 | ED.PDOC ---
General ED Provider: Dr. CHARLENE HYMAN-ER Chief Complaint: Dizziness Stated Complaint: my period hurts --c/o menstrual pain and dizziness and mild esposito Time Seen by Physician: 00:09 Mode of Arrival: Wheelchair Information Source: Patient Exam Limitations: No limitations Primary Care Provider: [facility] Nursing and Triage Documentation Reviewed and Agree: Yes Does patient meet sepsis criteria?: No System Inflammatory Response Syndrome: Not Applicable Sepsis Protocol: For patient's 13 years and over: Temp is 96.8 and below OR 101 and greater Pulse >90 BPM Resp >20/minute Acutely Altered Mental Status Are patient's symptoms suggestive of a new infection, such as: -Pneumonia -Skin, Soft Tissue -Endocarditis -UTI -Bone, Joint Infection -Implantable Device -Acute Abdominal Infection -Wound Infection -Meningitis -Blood Stream Catheter Infection -Unknown GI Complaint Exam - Abdominal Pain Complaint/Exam Onset: Gradual Duration: with menstruation Symptoms Are: Still present Timing: Constant Initial Severity: Mild Current Severity: Mild Location of Pain: Suprapubic Character: Reports: Dull, Aching Associated Signs and Symptoms: Reports: Nausea Review of Systems - Review Of Systems Constitutional: Reports: No symptoms Eyes: Reports: No symptoms Ears, Nose, Mouth, Throat: Reports: No symptoms Respiratory: Reports: No symptoms Cardiac: Reports: No symptoms GI: Reports: Abdominal pain, Nausea : Reports: No symptoms Musculoskeletal: Reports: No symptoms Skin: Reports: No symptoms Neurological: Reports: Headache, Other (dizziness) Endocrine: Reports: No symptoms Hematologic/Lymphatic: Reports: No symptoms All Other Systems: Reviewed and Negative Past Medical History - Past Medical History Previously Healthy: Yes Endocrine: Reports: None Cardiovascular: Reports: None Respiratory: Reports: None Hematological: Reports: None Gastrointestinal: Reports: GERD Genitourinary: Reports: None Neuro/Psych: Reports: Anxiety, Depression, Other (OCD) Musculoskeletal: Reports: None Cancer: Reports: None Last Menstrual Period: current - Surgical History General Surgical History: Reports: Tubal ligation, Cholecystectomy - Family History Family History: Reports: Unknown - Social History Smoking Status: Former smoker Hx Substance Use: No Alcohol Screening: None - Immunizations Tetanus Shot up to Date: Yes Physical Exam - Physical Exam Appearance: Well-appearing, No pain distress, Well-nourished Eyes: ELÍAS, EOMI, Conjunctiva clear ENT: Ears normal, Nose normal, Oropharynx normal Neck: Supple Respiratory: Airway patent, Breath sounds clear, Breath sounds equal, Respirations nonlabored Cardiovascular: RRR, Pulses normal, No rub, No murmur GI/: Soft, Nontender, No masses, Bowel sounds normal, No Organomegaly Musculoskeletal: Normal strength, ROM intact, No edema, No calf tenderness Skin: Warm, Dry, Normal color Neurological: Sensation intact, Motor intact, Reflexes intact, Cranial nerves intact, Alert, Oriented Psychiatric: Affect appropriate, Mood appropriate Interpretation - Radiology Interpretation Radiology Interpretation By: Radiologist Radiology Results: Negative Exam Interpreted: CT Scan Re-Evaluation - Re-Evaluation Time of Re-Evaluation: 00:11 Status: Improved Vital Signs Stable: Yes Pain Level: 0 Appearance: NAD Lungs: Clear Skin: Warm and Dry Neuro: Alert and Oriented X3 CV: RRR Critical Care Note - Critical Care Note Total Time (mins): 0 Course - Course Hematology/Chemistry: 12/24/17 21:40 12/24/17 21:40 Orders, Labs, Meds: Lab Review 12/24/17 12/24/17 12/24/17 09:40 21:40 21:40 WBC 7.31 RBC 4.48 Hgb 12.8 Hct 38.2 MCV 85.3 MCH 28.6 MCHC 33.5 RDW Coeff of Yesi 13.7 Plt Count 214 Immature Gran % (Auto) 0.4 Neut % (Auto) 47.6 Lymph % (Auto) 40.6 [place] % (Auto) 7.8 Eos % (Auto) 2.6 Baso % (Auto) 1.0 Immature Gran # (Auto) 0.0 Neut # (Auto) 3.5 Lymph # (Auto) 3.0 [place] # (Auto) 0.6 Eos # (Auto) 0.2 Baso # (Auto) 0.1 Clumped Platelets 1 Anisocytosis Not present RBC Morph Comment Normal Sodium 141.4 Potassium 3.69 Chloride 109.7 H Carbon Dioxide 25.1 Anion Gap 10.29 BUN 12.4 Creatinine 1.10 Estimated GFR (MDRD) 56.00 BUN/Creatinine Ratio 11.27 Glucose 61.3 L Calcium 9.40 Total Bilirubin 0.36 AST 22.0 ALT 14.8 Alkaline Phosphatase 26.4 L Total Creatine Kinase 77.2 Troponin I < 0.012 Total Protein 7.00 Albumin 4.09 Globulin 2.91 Albumin/Globulin Ratio 1.40 Amylase 80.9 Lipase 31.9 Serum , Qual Urine Color Urine Clarity Urine pH Ur Specific [place] Urine Protein Urine Glucose (UA) Urine Ketones Urine Blood Urine Nitrite Urine Bilirubin Urine Urobilinogen Ur Leukocyte Esterase Urine Microscopic RBC Urine Microscopic WBC Ur Squamous Epith Cells Cystine Crystals Urine Bacteria Urine Mucus Urine Opiates Screen Negative Ur Oxycodone Screen Negative Urine Methadone Screen Positive Ur Propoxyphene Screen Negative Ur Barbiturates Screen Positive U Tricyclic Antidepress Negative Ur Phencyclidine Scrn Negative Ur Amphetamine Screen Negative U Methamphetamines Scrn Negative U Benzodiazepines Scrn Positive Urine Cocaine Screen Positive U Cannabinoids Screen Positive 12/24/17 12/24/17 21:40 21:40 WBC RBC Hgb Hct MCV MCH MCHC RDW Coeff of Yesi Plt Count Immature Gran % (Auto) Neut % (Auto) Lymph % (Auto) [place] % (Auto) Eos % (Auto) Baso % (Auto) Immature Gran # (Auto) Neut # (Auto) Lymph # (Auto) [place] # (Auto) Eos # (Auto) Baso # (Auto) Clumped Platelets Anisocytosis RBC Morph Comment Sodium Potassium Chloride Carbon Dioxide Anion Gap BUN Creatinine Estimated GFR (MDRD) BUN/Creatinine Ratio Glucose Calcium Total Bilirubin AST ALT Alkaline Phosphatase Total Creatine Kinase Troponin I Total Protein Albumin Globulin Albumin/Globulin Ratio Amylase Lipase Serum , Qual Negative Urine Color Yellow Urine Clarity Clear Urine pH 5.5 Ur Specific [place] >=1.030 Urine Protein 1+ Urine Glucose (UA) Negative Urine Ketones Negative Urine Blood 2+ Urine Nitrite Negative Urine Bilirubin 1+ Urine Urobilinogen 0.2 Ur Leukocyte Esterase Negative Urine Microscopic RBC 0-2 Urine Microscopic WBC 2-5 Ur Squamous Epith Cells 0-2 Cystine Crystals 2+ Urine Bacteria 1+ Urine Mucus 3+ Urine Opiates Screen Ur Oxycodone Screen Urine Methadone Screen Ur Propoxyphene Screen Ur Barbiturates Screen U Tricyclic Antidepress Ur Phencyclidine Scrn Ur Amphetamine Screen U Methamphetamines Scrn U Benzodiazepines Scrn Urine Cocaine Screen U Cannabinoids Screen Orders Category Date Time Status EKG-(ED ONLY) Stat CARDIO 12/24/17 21:26 Completed ED IV/MEDIPORT/POWERPORT .ONCE EMERGENCY 12/24/17 21:26 Active AMYLASE Stat LAB 12/24/17 21:40 Completed CBC W/ AUTO DIFF Stat LAB 12/24/17 21:40 Completed COMPREHENSIVE METABOLIC PANEL Stat LAB 12/24/17 21:40 Completed CREATINE KINASE Stat LAB 12/24/17 21:40 Completed LIPASE Stat LAB 12/24/17 21:40 Completed RBC MORPHOLOGY Stat LAB 12/24/17 21:40 Completed SERUM Stat LAB 12/24/17 21:40 Completed TROPONIN I Stat LAB 12/24/17 21:40 Completed URINALYSIS C & S IF INDICATED Stat LAB 12/24/17 21:40 Completed URINE CULTURE Stat LAB 12/24/17 21:40 Received URINE DRUG SCREEN (RAPID FOR ED) [DRUG SCREEN, URINE, LAB 12/24/17 09:40 Completed RAPID] Stat 0.9 % Sodium Chloride [Saline Flush] MEDS 12/24/17 21:26 Ordered 1 syr IVF PRN PRN Ketorolac Tromethamine [Toradol] MEDS 12/24/17 21:26 Discontinued 30 mg IVP ONCE STA Promethazine HCl [Phenergan 25 mg/ml Vial] MEDS 12/24/17 21:50 Discontinued 25 mg .ROUTE .STK-MED ONE Promethazine HCl [Phenergan 25 mg/ml Vial] 25 mg MEDS 12/24/17 21:26 Discontinued 0.9 % Sodium Chloride [Sodium Chloride] 50 ml IV ONCE Sodium Chloride 0.9% [Sodium Chloride] 1,000 ml MEDS 12/24/17 21:[address] ABD/PEL WO RENAL STONE PROT Stat RADS 12/24/17 21:[address] HEAD W/O CONTRAST Stat RADS 12/24/17 21:27 Completed Medications Generic Name Dose Route Start Last Admin Trade Name Freq PRN Reason Stop Dose Admin Sodium Chloride 1 syr 12/24/17 21:26 Saline Flush IVF PRN PRN To flush IV Discontinued Medications Generic Name Dose Route Start Last Admin Trade Name Freq PRN Reason Stop Dose Admin Promethazine HCl 25 mg/ Sodium 51 mls @ 75 mls/hr 12/24/17 21:26 12/24/17 21: 52 Chloride IV 12/24/17 22:06 75 mls/hr ONCE STA Administration Sodium Chloride 1,000 mls @ 1,000 mls/hr 12/24/17 21:26 12/24/17 21:52 Sodium Chloride IV 12/24/17 22:25 1,000 mls/hr BOLUS STA Administration Ketorolac Tromethamine 30 mg 12/24/17 21:26 12/24/17 21:52 Toradol IVP 12/24/17 21:27 30 mg ONCE STA Administration Vital Signs: Temp Pulse Resp BP Pulse Ox 12/24/17 21:17 97.6 F 76 18 142/87 H 99 Departure - Departure Time of Disposition: 00:12 Disposition: HOME SELF-CARE Discharge Problem: Dysmenorrhea, unspecified Instructions: Dysmenorrhea (ED) Condition: Fair Pt referred to PMD for follow-up: Yes IPMP verified?: No Additional Instructions: keep yourself hydrated--motrin for discomfort as directed--f/u with ceramic tile installation helper and i suggested seeing dr erwin about your 4 weeks of tinnitus Allergies/Adverse Reactions: Allergies No Known Allergies Allergy (Verified 12/24/17 21:22) Home Medications: Ambulatory Orders Clonazepam [Klonopin] 1 mg PO TID 07/12/13 Fluoxetine HCl [Prozac] 40 mg PO DAILY 07/12/13 Medicinal Marijuana 11/26/17 Disposition Discussed With: Patient
== END 2017-12-25 00:40 | disposition home or self-care (01) ==
LOC: ED 21:16
DX: N94.6 Dysmenorrhea, unspecified (principal); H93.19 Tinnitus, unspecified ear
CPT/HCPCS: 36415; 74176; 80053; 80306; 81001; 82150; 82550; 83690; 84484; 84703; 85008; 85025; 87086; 93005; 93010; 96361; 96365; 96375; 99283

== ENCOUNTER 2017-12-30 07:40 | Emergency (ER) ==
[2017-12-30 07:43] VITALS: BP 124/73; TEMP 97.2; BMI 27.2
[2017-12-30] MEDS ORDERED: PROTONIX IV IVP STA (07:56)
[2017-12-30] MEDS ORDERED: PHENERGAN 25 MG/ML VIAL 25 MG in SODIUM CHLORIDE 50 ML IV STA (07:56)
[2017-12-30] MEDS ORDERED: SODIUM CHLORIDE 1,000 ML IV STA (07:56)
[2017-12-30] MEDS ORDERED: PHENERGAN 25 MG/ML VIAL ONE (08:12)
--- NOTE | 2017-12-30 09:03 | ED.PDOC ---
General ED Provider: Dr. XIOMARA MEJÍA Chief Complaint: Nausea/Vomiting Stated Complaint: Patient states she has menstral cramps pain. She was recently seen in the er for the same. Has been having nausea and vomiting for the last few hours with supra pubic pain. Admits to Marijuana use. Has had a prior significant drug use recently also Time Seen by Physician: 07:50 Mode of Arrival: Walk-In Information Source: Patient Exam Limitations: No limitations Primary Care Provider: GEMMA LUGO Nursing and Triage Documentation Reviewed and Agree: Yes Does patient meet sepsis criteria?: No System Inflammatory Response Syndrome: Not Applicable Sepsis Protocol: For patient's 13 years and over: Temp is 96.8 and below OR 101 and greater Pulse >90 BPM Resp >20/minute Acutely Altered Mental Status Are patient's symptoms suggestive of a new infection, such as: -Pneumonia -Skin, Soft Tissue -Endocarditis -UTI -Bone, Joint Infection -Implantable Device -Acute Abdominal Infection -Wound Infection -Meningitis -Blood Stream Catheter Infection -Unknown Review of Systems - Review Of Systems Constitutional: Reports: Loss of appetite Eyes: Reports: Photophobia Ears, Nose, Mouth, Throat: Reports: No symptoms Respiratory: Reports: No symptoms Cardiac: Reports: No symptoms GI: Reports: Abdominal pain, Nausea, Vomiting : Reports: No symptoms Musculoskeletal: Reports: No symptoms Skin: Reports: No symptoms Neurological: Reports: Anxiety, Headache Endocrine: Reports: No symptoms Hematologic/Lymphatic: Reports: No symptoms All Other Systems: Reviewed and Negative Past Medical History - Past Medical History Previously Healthy: Yes Endocrine: Reports: None Cardiovascular: Reports: None Respiratory: Reports: None Hematological: Reports: None Gastrointestinal: Reports: GERD Genitourinary: Reports: None Neuro/Psych: Reports: Anxiety, Depression, Other (OCD) Musculoskeletal: Reports: None Cancer: Reports: None Last Menstrual Period: PRESENTLY - Surgical History General Surgical History: Reports: Tubal ligation, Cholecystectomy - Family History Family History: Reports: Unknown - Social History Smoking Status: Former smoker Hx Substance Use: No Alcohol Screening: None - Immunizations Tetanus Shot up to Date: Yes Physical Exam - Physical Exam Appearance: Ill-appearing Ill-appearing: Moderate Pain Distress: Moderate Eyes: ELÍAS, EOMI, Conjunctiva clear Respiratory: Airway patent, Breath sounds clear, Breath sounds equal, Respirations nonlabored Cardiovascular: RRR, Pulses normal, No rub, No murmur GI/: Soft, Nontender, No masses, Bowel sounds normal, No Organomegaly Musculoskeletal: Normal strength, ROM intact, No edema, No calf tenderness Skin: Warm, Dry, Normal color Neurological: Sensation intact, Motor intact, Reflexes intact, Cranial nerves intact, Alert, Oriented Psychiatric: Anxious Critical Care Note - Critical Care Note Total Time (mins): 0 Course - Course Hematology/Chemistry: 12/30/17 08:10 12/30/17 08:10 Orders, Labs, Meds: Lab Review 12/30/17 12/30/17 12/30/17 08:10 08:10 10:00 WBC 9.28 RBC 4.80 Hgb 13.8 Hct 40.2 MCV 83.8 MCH 28.8 MCHC 34.3 RDW Coeff of Yesi 13.2 Plt Count 231 Immature Gran % (Auto) 0.3 Neut % (Auto) 73.6 Lymph % (Auto) 18.2 Cowley % (Auto) 5.3 Eos % (Auto) 1.6 Baso % (Auto) 1.0 Immature Gran # (Auto) 0.0 Neut # (Auto) 6.8 Lymph # (Auto) 1.7 Cowley # (Auto) 0.5 Eos # (Auto) 0.2 Baso # (Auto) 0.1 Sodium 135.9 L Potassium 3.57 Chloride 106.0 Carbon Dioxide 19.5 L Anion Gap 13.97 BUN 14.3 Creatinine 0.97 Estimated GFR (MDRD) 65.00 BUN/Creatinine Ratio 14.74 Glucose 116.8 H Calcium 9.36 Total Bilirubin 0.78 AST 22.1 ALT 15.3 Alkaline Phosphatase 36.2 L Total Protein 7.48 Albumin 4.34 Globulin 3.14 Albumin/Globulin Ratio 1.38 Amylase 94.2 Lipase 40.9 Urine Color Yellow Urine Clarity Clear Urine pH 7.5 Ur Specific Patterson 1.025 Urine Protein 1+ Urine Glucose (UA) Negative Urine Ketones 3+ Urine Blood Trace-intact Urine Nitrite Negative Urine Bilirubin Negative Urine Urobilinogen 0.2 Ur Leukocyte Esterase Negative Urine Microscopic RBC 5-10 Ur Squamous Epith Cells Not present Urine Mucus 2+ Orders Category Date Time Status AMYLASE Stat LAB 12/30/17 08:10 Completed CBC W/ AUTO DIFF Stat LAB 12/30/17 08:10 Completed COMPREHENSIVE METABOLIC PANEL Stat LAB 12/30/17 08:10 Completed LIPASE Stat LAB 12/30/17 08:10 Completed URINALYSIS C & S IF INDICATED Stat LAB 12/30/17 10:00 Completed Pantoprazole Sodium [Protonix IV] MEDS 12/30/17 07:56 Discontinued 40 mg IVP ONCE STA Promethazine HCl [Phenergan 25 mg/ml Vial] MEDS 12/30/17 08:12 Discontinued 25 mg .ROUTE .STK-MED ONE Promethazine HCl [Phenergan 25 mg/ml Vial] 25 mg MEDS 12/30/17 07:56 Discontinued 0.9 % Sodium Chloride [Sodium Chloride] 50 ml IV ONCE Sodium Chloride 0.9% [Sodium Chloride] 1,000 ml MEDS 12/30/17 07:56 Discontinued IV BOLUS Medications Discontinued Medications Generic Name Dose Route Start Last Admin Trade Name Vinay PRN Reason Stop Dose Admin Promethazine HCl 25 mg/ Sodium 51 mls @ 75 mls/hr 12/30/17 07:56 12/30/17 08: 24 Chloride IV 12/30/17 08:36 75 mls/hr ONCE STA Administration Sodium Chloride 1,000 mls @ 1,000 mls/hr 12/30/17 07:56 12/30/17 08:26 Sodium Chloride IV 12/30/17 08:55 1,000 mls/hr BOLUS STA Administration Pantoprazole Sodium 40 mg 12/30/17 07:56 12/30/17 08:26 Protonix Iv IVP 12/30/17 07:57 40 mg ONCE STA Administration Vital Signs: Temp Pulse Resp BP Pulse Ox 12/30/17 07:40 97.2 F L 86 18 124/73 99 Departure - Departure Time of Disposition: 10:58 Disposition: HOME SELF-CARE Discharge Problem: Nausea, Vomiting, Dysmenorrhea, Cyclical vomiting Abdominal pain Qualifiers: Abdominal location: lower abdomen, unspecified Qualified Code(s): R10.30 - Lower abdominal pain, unspecified Instructions: Cyclic Vomiting Syndrome (ED) Condition: Fair Pt referred to PMD for follow-up: Yes IPMP verified?: No Additional Instructions: STOP USING MARIJUANA IT MAY CAUSE CYCLICAL VOMITING. CONTINUE HOME ZOFRAN FOLLOW UP WITH PCP IN 2 DAYS FOLLOW UP WITH OBGYN FOR CHRONIC DYSMENORRHEA. Allergies/Adverse Reactions: Allergies No Known Allergies Allergy (Verified 12/30/17 07:43) Home Medications: Ambulatory Orders Clonazepam [Klonopin] 1 mg PO TID 07/12/13 Fluoxetine HCl [Prozac] 40 mg PO DAILY 07/12/13 Medicinal Marijuana 11/26/17 Disposition Discussed With: Patient
== END 2017-12-30 11:14 | disposition home or self-care (01) ==
LOC: ED 07:40
DX: N94.6 Dysmenorrhea, unspecified (principal); R10.30 Lower abdominal pain, unspecified; G43.A0 Cyclical vomiting, in migraine, not intractable; F12.10 Cannabis abuse, uncomplicated
CPT/HCPCS: 36415; 80053; 81001; 82150; 83690; 85025; 96361; 96365; 96375; 99284